=== PATIENT | female | born 1940 | race Two or more races ===

== ENCOUNTER 2017-09-08 09:26 | Inpatient (IN) | payer MEDICARE, MEDICAID ==
[~2017-09-08] VITALS: Ht 154.9 cm; Wt 81.6 kg
[2017-09-08] VITALS (7 sets, daily range): BP systolic 153–176; BP diastolic 64–103
--- NOTE | 2017-09-08 09:56 | Emergency Room Report ---
History of Present Illness General Chief Complaint: Generalized Weakness Source: Patient, EMS Present Illness HPI 77-year-old female history of diabetes and hypertension, presenting with generalized weakness, dizziness, nausea and vomiting for one day. States that she vomited twice. No diarrhea. Is passing gas. Last bowel movement was last night. Feels generally weak. Denying any fever chills or chest pain. Currently complaining of epigastric pain no other abdominal pain Allergies: Coded Allergies: No Known Allergies (Unverified , 09/08/17) Patient History Past Medical History: see triage record Past Surgical History: none Pertinent Family History: none Reviewed Nursing Documentation: PMH: Agreed, PSxH: Agreed Nursing Documentation-PMH Hx Hypertension: Yes Hx Diabetes: Yes Review of Systems All Other Systems: negative except mentioned in HPI Physical Exam Vital Signs Date Time Temp Pulse Resp B/P (MAP) Pulse Ox O2 Delivery O2 Flow Rate FiO2 09/08/17 09:18 97.5 53 18 183/67 97 Room Air Sp02 EP Interpretation: reviewed, normal General Appearance: alert, GCS 15, non-toxic, moderate distress Head: normocephalic, atraumatic Eyes: bilateral eye normal inspection, bilateral eye PERRL, bilateral eye EOMI ENT: normal ENT inspection, normal pharynx, normal voice, moist mucus membranes Neck: normal inspection, full range of motion, supple Respiratory: normal inspection, lungs clear, normal breath sounds, no respiratory distress, no retraction, no wheezing, speaking full sentences, chest symmetrical Cardiovascular #1: tachycardia, irregularly irregular Cardiovascular #2: 2+ radial (R), 2+ radial (L) Gastrointestinal: other - epigastric tenderness nontender elsewhere Musculoskeletal: normal inspection, back normal, normal range of motion, non- tender Neurologic: normal inspection, alert, oriented x3, responsive, motor strength/ tone normal, sensory intact, normal gait, speech normal Psychiatric: normal inspection, judgement/insight normal, memory normal Skin: normal inspection, normal color, no rash, warm/dry, well hydrated, normal turgor Procedures Critical Care Time Critical Care Time 40 minutes of CC time 77-year-old female, generalized weakness, found to be in atrial fibrillation with RVR VS: Tachycardic Airway patent. Not hypoxic. PLAN: IV access, labs, lactate, troponin, Blood/Urine Cx, Abx, IVF, CT of the pelvis Anticipate admission to Tele vs. [facility] CC time also includes review of labs, review of EMR, discussion with family and paperwork from SNF, d/w hospitalist CC could include dosing of pressors, additional Abx CC time does not include procedures Medical Decision Making Diagnostic Impression: Primary Impression: Episode of generalized weakness Additional Impressions: Abdominal pain Atrial fibrillation ER Course 77-year-old female with generalized weakness, nausea vomiting DDX: Dehydration, electrolyte disturbance, infection, UTI/pneumonia Gastritis, cholecystitis, mesenteric ischemia, appendicitis, diverticulitis Also found to be in atrial fibrillation with RVR, cardiac/ACS Plan: Obtain labs, ua, EKG, CXR CT abdomen pelvis ER course: Patient initially in atrial fibrillation with RVR, heart rate in 140s, paroxysmal, now at 100 now NSR at [address] abdo pelvis neg for acute process will admit Disposition: Patient is to be admitted to telemetry D/W hospitalist Dr Moore Please note that this Emergency Department Report was dictated using [employer] technician technology software, occasionally this can lead to erroneous entry secondary to interpretation by the dictation equipment. EKG Diagnostic Results #1 EP Interpretation: Yes Rate: shin Rhythm: NSR ST Segments: No acute changes ASA given to patient: No EKG Diagnostic Results #2 EP Interpretation: Yes Rate: tachy Rhythm: afib ST Segments: diffuse ST depressions ASA given to patient: Yes Rhythm Strip EP Interpretation: Yes Rate: 100 Rhythm: NSR, no PVCs, no ectopy Chest X-ray CXR: Ordered: Yes 1 view Indication: pain EP interpretation: Yes Interpretation: No consolidation, no effusion, no PTX, no acute cardiopulmonary disease Impression: No acute disease Electronically signed by Brina Krishnan MD Laboratory Tests Test 09/08/17 09:45 White Blood Count 8.4 K/UL (4.8-10.8) Red Blood Count 5.08 M/UL (4.20-5.40) Hemoglobin 14.8 G/DL (12.0-16.0) Hematocrit 45.1 % (37.0-47.0) Mean Corpuscular Volume 89 FL (80-99) Mean Corpuscular Hemoglobin 29.2 PG (27.0-31.0) Mean Corpuscular Hemoglobin Concent 32.8 G/DL (32.0-36.0) Red Cell Distribution Width 12.2 % (11.6-14.8) Platelet Count 226 K/UL (150-450) Mean Platelet Volume 8.8 FL (6.5-10.1) Neutrophils (%) (Auto) 62.1 % (45.0-75.0) Lymphocytes (%) (Auto) 26.4 % (20.0-45.0) Monocytes (%) (Auto) 5.8 % (1.0-10.0) Eosinophils (%) (Auto) 4.8 % (0.0-3.0) H Basophils (%) (Auto) 0.9 % (0.0-2.0) Sodium Level 139 MMOL/L (136-145) Potassium Level 3.1 MMOL/L (3.5-5.1) L Chloride Level 100 MMOL/L (98-107) Carbon Dioxide Level 27 MMOL/L (21-32) Anion Gap 12 mmol/L (5-15) Blood Urea Nitrogen 14 mg/dL (7-18) Creatinine 0.9 MG/DL (0.55-1.30) Estimate Glomerular Filtration Rate mL/min (>60) Glucose Level 350 MG/DL (74-106) H Lactic Acid Level 2.60 mmol/L (0.66-2.22) H Calcium Level 9.6 MG/DL (8.5-10.1) Total Bilirubin 0.5 MG/DL (0.2-1.0) Aspartate Amino Transferase (AST) 20 U/L (15-37) Alanine Aminotransferase (ALT) 25 U/L (12-78) Alkaline Phosphatase 96 U/L (46-116) Troponin I 0.003 ng/mL (0.000-0.056) Pro-B-Type Natriuretic Peptide 556 pg/mL (0-125) H Total Protein 8.2 G/DL (6.4-8.2) Albumin 3.7 G/DL (3.4-5.0) Globulin 4.5 g/dL Albumin/Globulin Ratio 0.8 (1.0-2.7) L CT/MRI/US Diagnostic Results CT/MRI/US Diagnostic Results : Imaging Test Ordered: ct ABDO PELVIS Impression Findings: Lung bases are clear. There is partial visualization of a tiny less than 1 cm nodular focus in the right breast with lucent center seen on image 2 of series 3. Correlate with mammogram and ultrasound if needed. Biliary ducts appear mildly prominent within the liver. Gallbladder is absent. Spleen is normal size. Kidneys enhance normally. Pancreas is unremarkable. Small hiatal hernia is present. Urinary bladder is unremarkable. Atrophic uterus noted normal appendix noted Marked spondylosis IMPRESSION: Some biliary ductal prominence noted. Given age and prior cholecystectomy this may be normal. Please correlate clinically. Spondylosis Mild atherosclerotic disease Small nodular focus within the right breast, incompletely assessed. Suggest correlation with mammogram and ultrasound. Last Vital Signs Date Time Temp Pulse Resp B/P (MAP) Pulse Ox O2 Delivery O2 Flow Rate FiO2 09/08/17 09:18 97.5 53 18 183/67 97 Room Air Disposition: ADMITTED INPATIENT Condition: Serious ChayaoBrina M.D. Sep 08, 2017 09:56
[2017-09-08 10:14] LABS: BASOPHILS % (AUTO) 0.9 % (0.0-2.0); EOSINOPHILS % (AUTO) 4.8 % (0.0-3.0); HEMATOCRIT 45.1 % (37.0-47.0); HEMOGLOBIN 14.8 G/DL (12.0-16.0); LYMPHOCYTES % (AUTO) 26.4 % (20.0-45.0); MEAN CORPUSCULAR VOLUME 89 FL (80-99); MONOCYTES % (AUTO) 5.8 % (1.0-10.0); NEUTROPHILS % (AUTO) 62.1 % (45.0-75.0); PLATELET COUNT 226 K/UL (150-450); RED BLOOD COUNT 5.08 M/UL (4.20-5.40); RED CELL DISTRIBUTION WIDTH 12.2 % (11.6-14.8); WHITE BLOOD COUNT 8.4 K/UL (4.8-10.8)
[2017-09-08] MEDS: Sodium Chloride 500ML 550 ML IV SCH ×6 (10:14→23:34)
[2017-09-08 10:37] LABS: ANION GAP 12 mmol/L (5-15); BLOOD UREA NITROGEN 14 mg/dL (7-18); CALCIUM 9.6 MG/DL (8.5-10.1); CARBON DIOXIDE 27 MMOL/L (21-32); CHLORIDE 100 MMOL/L (98-107); CREATININE 0.9 MG/DL (0.55-1.30); POTASSIUM 3.1 MMOL/L (3.5-5.1); SODIUM 139 MMOL/L (136-145)
[2017-09-08] MEDS ORDERED: METOPROLOL TART25 MG ORAL (10:39)
[2017-09-08] MEDS ORDERED: METFORMIN HCL500 M1 ORAL (10:39)
[2017-09-08 10:48] LABS: ALANINE AMINOTRANSFERASE 25 U/L (12-78); ALBUMIN 3.7 G/DL (3.4-5.0); ALBUMIN/GLOBULIN RATIO 0.8 (1.0-2.7); ALKALINE PHOSPHATASE 96 U/L (46-116); ASPARTATE AMINO TRANSFERASE 20 U/L (15-37); BILIRUBIN,TOTAL 0.5 MG/DL (0.2-1.0)
--- NOTE | 2017-09-08 12:18 | Diagnostic Imaging Report ---
Indication: Dyspnea Comparison: 09/08/2008 A single view chest radiograph was obtained. Findings: No definite infiltrate or pulmonary vascular congestion identified. The heart is enlarged. The aorta is mildly enlarged consistent with atherosclerotic vascular disease. The bones are osteopenic. Impression: No acute disease
--- NOTE | 2017-09-08 13:46 | Diagnostic Imaging Report ---
Indication: Abdominal pain Technique: Continuous helical transaxial imaging of the abdomen and pelvis was obtained from the lung bases to the pubic symphysis during intravenous contrast administration. Coronal 2-D reformats were also obtained. Study obtained in a Siemens sensation [address] Automatic Exposure Control was utilized. Total Dose length Product (DLP): 942.[address] Dose Index Volume (CTDIvol): 17.93 mGy Comparison: None Findings: Lung bases are clear. There is partial visualization of a tiny less than 1 cm nodular focus in the right breast with lucent center seen on image 2 of series 3. Correlate with mammogram and ultrasound if needed. Biliary ducts appear mildly prominent within the liver. Gallbladder is absent. Spleen is normal size. Kidneys enhance normally. Pancreas is unremarkable. Small hiatal hernia is present. Urinary bladder is unremarkable. Atrophic uterus noted normal appendix noted Marked spondylosis IMPRESSION: Some biliary ductal prominence noted. Given age and prior cholecystectomy this may be normal. Please correlate clinically. Spondylosis Mild atherosclerotic disease Small nodular focus within the right breast, incompletely assessed. Suggest correlation with mammogram and ultrasound. The CT scanner at [facility] is accredited by the [employer] and the scans are performed using dose optimization techniques as appropriate to a performed exam including Automatic Exposure control.
[2017-09-08 14:44] LABS: APPEARANCE,URINE CLEAR; BILIRUBIN, URINE NEGATIVE (NEGATIVE); COLOR,URINE PALE YELLOW; GLUCOSE, URINE (UA) 4+ (NEGATIVE); KETONES,URINE 2+ (NEGATIVE); LEUKOCYTE ESTERASE ,URINE NEGATIVE (NEGATIVE); NITRITE,URINE NEGATIVE (NEGATIVE); PH,URINE 8 (4.5-8.0); PROTEIN,URINE 2+ (NEGATIVE); UROBILINOGEN,URINE NORMAL MG/DL (0.0-1.0)
[2017-09-08] MEDS ORDERED: Potassium Chloride 10 MEQ in NS 110 ML IVPB SCH (15:45)
--- NOTE | 2017-09-08 17:28 | Cardiac Electrophysiology PN ---
Subjective Subjective Dictated. Atrial fib with RVR 140s and sinus bradycardia. DW ER [id number] Objective Last 24 Hour Vital Signs Date Time Temp Pulse Resp B/P (MAP) Pulse Ox O2 Delivery O2 Flow Rate FiO2 09/08/17 16:00 57 16 176/64 95 Room Air 09/08/17 15:38 97.5 69 20 168/80 97 Room Air 09/08/17 14:00 69 20 168/80 97 Room Air 09/08/17 12:00 63 20 175/76 95 Room Air 09/08/17 11:30 57 18 160/89 95 Room Air 09/08/17 10:00 132 20 167/103 95 Room Air 09/08/17 09:18 97.5 53 18 183/67 97 Room Air Laboratory Tests Test 09/08/17 09:45 09/08/17 12:45 09/08/17 14:15 White Blood Count 8.4 K/UL (4.8-10.8) Red Blood Count 5.08 M/UL (4.20-5.40) Hemoglobin 14.8 G/DL (12.0-16.0) Hematocrit 45.1 % (37.0-47.0) Mean Corpuscular Volume 89 FL (80-99) Mean Corpuscular Hemoglobin 29.2 PG (27.0-31.0) Mean Corpuscular Hemoglobin Concent 32.8 G/DL (32.0-36.0) Red Cell Distribution Width 12.2 % (11.6-14.8) Platelet Count 226 K/UL (150-450) Mean Platelet Volume 8.8 FL (6.5-10.1) Neutrophils (%) (Auto) 62.1 % (45.0-75.0) Lymphocytes (%) (Auto) 26.4 % (20.0-45.0) Monocytes (%) (Auto) 5.8 % (1.0-10.0) Eosinophils (%) (Auto) 4.8 % (0.0-3.0) H Basophils (%) (Auto) 0.9 % (0.0-2.0) Sodium Level 139 MMOL/L (136-145) Potassium Level 3.1 MMOL/L (3.5-5.1) L Chloride Level 100 MMOL/L (98-107) Carbon Dioxide Level 27 MMOL/L (21-32) Anion Gap 12 mmol/L (5-15) Blood Urea Nitrogen 14 mg/dL (7-18) Creatinine 0.9 MG/DL (0.55-1.30) Estimat Glomerular Filtration Rate mL/min (>60) Glucose Level 350 MG/DL (74-106) H Lactic Acid Level 2.60 mmol/L (0.66-2.22) H 2.60 mmol/L (0.66-2.22) H Calcium Level 9.6 MG/DL (8.5-10.1) Total Bilirubin 0.5 MG/DL (0.2-1.0) Aspartate Amino Transf (AST/SGOT) 20 U/L (15-37) Alanine Aminotransferase (ALT/SGPT) 25 U/L (12-78) Alkaline Phosphatase 96 U/L (46-116) Troponin I 0.003 ng/mL (0.000-0.056) Pro-B-Type Natriuretic Peptide 556 pg/mL (0-125) H Total Protein 8.2 G/DL (6.4-8.2) Albumin 3.7 G/DL (3.4-5.0) Globulin 4.5 g/dL Albumin/Globulin Ratio 0.8 (1.0-2.7) L Urine Color Pale yellow Urine Appearance Clear Urine pH 8 (4.5-8.0) Urine Specific [place] 1.015 (1.005-1.035) Urine Protein 2+ (NEGATIVE) H Urine Glucose (UA) 4+ (NEGATIVE) H Urine Ketones 2+ (NEGATIVE) H Urine Occult Blood 2+ (NEGATIVE) H Urine Nitrite Negative (NEGATIVE) Urine Bilirubin Negative (NEGATIVE) Urine Urobilinogen Normal MG/DL (0.0-1.0) Urine Leukocyte Esterase Negative (NEGATIVE) Urine RBC 5-10 /HPF (0 - 2) H Urine WBC 0-2 /HPF (0 - 2) Urine Squamous Epithelial Cells Few /LPF (NONE/OCC) Urine Bacteria Few /HPF (NONE) EUGENIO WOODARD Sep 08, 2017 17:27
[2017-09-08] MEDS ORDERED: Metoprolol 25mg tab ORAL SCH (21:00)
[2017-09-08] MEDS: NovoLOG Insulin Flexpen SUBQ SCH (21:00)
--- NOTE | 2017-09-08 23:15 | Consultation ---
DATE OF CONSULTATION: 09/08/2017 CARDIOLOGY CONSULTATION CONSULTING PHYSICIAN: Arvin Bryson M.D. ATTENDING/REFERRING PHYSICIAN: Cesilia Merritt M.D. REASON FOR CONSULTATION: Atrial fibrillation with rapid ventricular response. HISTORY OF PRESENT ILLNESS: The patient is a 77-year-old lady with history of hypertension and diabetes, who was brought to the emergency room with generalized weakness, dizziness, nausea, and vomiting of one day duration. The patient in the emergency room was initially in sinus rhythm; however, developed atrial fibrillation with rapid ventricular response that was caught on a 12-lead EKG with heart rate of 140 beats per minute. Initial blood pressure was also 182/67. The patient subsequently converted on her own to sinus rhythm. The patient has not been admitted to the telemetry and a Cardiology consultation was requested for further evaluation and management. PAST MEDICAL HISTORY: 1. Hypertension. 2. Diabetes. FAMILY HISTORY: Noncontributory. SOCIAL HISTORY: She lives at home. Does not smoke or drink alcohol. REVIEW OF SYSTEMS: Negative other than what is mentioned in the history of present illness. PHYSICAL EXAMINATION: VITAL SIGNS: Blood pressure is 176/64, pulse 67, respirations 18, and she is afebrile. HEAD AND NECK: Showed no JVD. LUNGS: Clear. CARDIOVASCULAR: Shows regular S1 and S2 with no gallop or murmur. ABDOMEN: Soft. EXTREMITIES: No pitting edema. LABORATORY AND DIAGNOSTIC DATA: Initial EKG showed sinus bradycardia at a rate of 57. The second EKG showed atrial fibrillation with rapid ventricular response that were in 140s. Third EKG showed sinus bradycardia rate at 57. Labs show a white count of 8.4, hemoglobin 14.8, hematocrit 45.1, and platelet count 226. Sodium is 139, potassium 3.1, BUN of 14, creatinine 0.9, and glucose of 350. Troponin was negative. BNP is 556. ASSESSMENT AND PLAN: 1. Atrial fibrillation with rapid ventricular response. The patient is self converted to sinus rhythm. This could be the cause of the patient's weakness and fatigue and tachycardia. We will watch the patient on telemetry. We will completely rule out myocardial infarction protocol. We will get an echocardiogram to evaluate for ejection fraction and wall motion abnormality. Start the patient on low-dose beta-sandra. Continue to watch the patient on telemetry. Thyroid function tests will also be ordered. 2. Hypertension. Again, start low-dose beta-sandra and that would help with atrial fibrillation with ventricular response as well. 3. Hypokalemia. Potassium was replaced. Thank0 you very much for allowing me to participate in the care of this patient. Please do not hesitate to contact me for any questions regarding my evaluation. Arvin Bryson M.D. DR: MELINDA JOB#: [id number] CC:
[2017-09-09 00:16] VITALS: BP 142/63
[2017-09-09] MEDS: Sodium Chloride 500ML 550 ML IV SCH ×2 (00:45→06:30)
[2017-09-09 04:09] VITALS: BP 150/69
[2017-09-09] MEDS: NovoLOG Insulin Flexpen SUBQ SCH ×4 (06:51→21:27)
[2017-09-09 08:00] VITALS: BP 156/76
--- NOTE | 2017-09-09 08:18 | General Progress Note ---
Assessment/Plan Problem List: (1) Diabetes mellitus out of control ICD Codes: E11.65 - Type 2 diabetes mellitus with hyperglycemia SNOMED: 97711424, 538703634 (2) Lactic acid acidosis ICD Codes: E87.2 - Acidosis SNOMED: 83061784 (3) Atrial fibrillation ICD Codes: I48.91 - Unspecified atrial fibrillation SNOMED: 80161244 (4) Episode of generalized weakness ICD Codes: R53.1 - Weakness SNOMED: 55566996 (5) Abdominal pain ICD Codes: R10.9 - Unspecified abdominal pain SNOMED: 48396045 Assessment/Plan hold Metformin due to lactic acidosis check A1c start Levemir 10 units daily + Starlix 120 mg ac tid + NISS Subjective Allergies: Coded Allergies: No Known Allergies (Unverified , 09/08/17) All Systems: reviewed and negative except above Subjective hx of DM and HTN admitted with afib w/ RVR lactic acid level is elevated Objective Last 24 Hour Vital Signs Date Time Temp Pulse Resp B/P (MAP) Pulse Ox O2 Delivery O2 Flow Rate FiO2 09/09/17 04:09 96.9 54 18 150/69 94 Room Air 09/09/17 04:00 49 09/09/17 00:16 97.4 58 19 142/63 95 Room Air 09/09/17 00:00 96 09/09/17 00:00 63 09/08/17 21:00 59 153/68 09/08/17 20:13 98.2 59 18 153/68 98 Room Air 09/08/17 20:00 56 09/08/17 17:30 97.5 60 18 159/82 95 Room Air 09/08/17 16:00 57 16 176/64 95 Room Air 09/08/17 15:38 97.5 69 20 168/80 97 Room Air 09/08/17 14:00 69 20 168/80 97 Room Air 09/08/17 12:00 63 20 175/76 95 Room Air 09/08/17 11:30 57 18 160/89 95 Room Air 09/08/17 10:00 132 20 167/103 95 Room Air 09/08/17 09:18 97.5 53 18 183/67 97 Room Air Intake and Output 09/08/17 09/09/17 19:00 07:00 Intake Total 600 ml Output Total 300 ml Balance 600 ml -300 ml Intake IV Total 600 ml Output Urine Total 300 ml # Voids 3 Laboratory Tests 09/08/17 09:45: White Blood Count 8.4, Red Blood Count 5.08, Hemoglobin 14.8, Hematocrit 45.1, Mean Corpuscular Volume 89, Mean Corpuscular Hemoglobin 29.2, Mean Corpuscular Hemoglobin Concent 32.8, Red Cell Distribution Width 12.2, Platelet Count 226, Mean Platelet Volume 8.8, Neutrophils (%) (Auto) 62.1, Lymphocytes (%) (Auto) 26.4, Monocytes (%) (Auto) 5.8, Eosinophils (%) (Auto) 4.8H, Basophils (%) (Auto ) 0.9, Sodium Level 139, Potassium Level 3.1L, Chloride Level 100, Carbon Dioxide Level 27, Anion Gap 12, Blood Urea Nitrogen 14, Creatinine 0.9, Estimat Glomerular Filtration Rate , Glucose Level 350H, Lactic Acid Level 2.60H, Calcium Level 9.6, Total Bilirubin 0.5, Aspartate Amino Transf (AST/SGOT) 20, Alanine Aminotransferase (ALT/SGPT) 25, Alkaline Phosphatase 96, Troponin I 0.003, Pro-B-Type Natriuretic Peptide 556H, Total Protein 8.2, Albumin 3.7, Globulin 4.5, Albumin/Globulin Ratio 0.8L 09/08/17 12:45: Lactic Acid Level 2.60H 09/08/17 14:15: Urine Color Pale yellow, Urine Appearance Clear, Urine pH 8, Urine Specific [place] 1.015, Urine Protein 2+H, Urine Glucose (UA) 4+H, Urine Ketones 2+H, Urine Occult Blood 2+H, Urine Nitrite Negative, Urine Bilirubin Negative, Urine Urobilinogen Normal, Urine Leukocyte Esterase Negative, Urine RBC 5-10H, Urine WBC 0-2, Urine Squamous Epithelial Cells Few, Urine Bacteria Few 09/09/17 07:20: White Blood Count [Pending], Red Blood Count [Pending], Hemoglobin [Pending], Hematocrit [Pending], Mean Corpuscular Volume [Pending], Mean Corpuscular Hemoglobin [Pending], Mean Corpuscular Hemoglobin Concent [Pending], Red Cell Distribution Width [Pending], Platelet Count [Pending], Mean Platelet Volume [ Pending], Neutrophils (%) (Auto) [Pending], Lymphocytes (%) (Auto) [Pending], Monocytes (%) (Auto) [Pending], Eosinophils (%) (Auto) [Pending], Basophils (%) (Auto) [Pending], Sodium Level [Pending], Potassium Level [Pending], Chloride Level [Pending], Carbon Dioxide Level [Pending], Blood Urea Nitrogen [Pending], Creatinine [Pending], Estimat Glomerular Filtration Rate [Pending], Glucose Level [Pending], Calcium Level [Pending], Troponin I [Pending], Pro-B-Type Natriuretic Peptide [Pending], Thyroid Stimulating Hormone (TSH) [Pending], Free Thyroxine [Pending] Height (Feet): 5 Height (Inches): 1.00 Weight (Pounds): 180 General Appearance: no apparent distress EENT: pale conjunctivae Neck: normal alignment Cardiovascular: normal rate Respiratory/Chest: lungs clear Abdomen: normal bowel sounds Pelvis: normal external exam Objective Current Medications Medications (Trade) Dose Ordered Sig/Terri Route PRN Reason Start Time Stop Time Status Last Admin Dose Admin Dextrose (Dextrose 50%) STAT PRN IV Hypoglycemia 09/08/17 20:30 10/08/17 20:29 Insulin Aspart (NovoLOG) BEFORE MEALS AND HS SUBQ 09/08/17 21:00 10/08/17 20:59 09/09/17 06:51 Metoprolol Tartrate (Lopressor) 25 mg Q12HR ORAL 09/08/17 21:00 10/08/17 20:59 09/08/17 21:00 Ondansetron HCl (Zofran) 4 mg Q6H PRN IVP Nausea & Vomiting 09/09/17 08:15 10/09/17 08:14 Sodium Chloride 550 ml @ 125 mls/hr Q4H24M IV 09/08/17 10:15 10/08/17 10:14 09/09/17 06:30 Sodium Chloride 550 ml @ 200 mls/hr Q2H45M IV 09/08/17 11:00 10/08/17 10:59 09/08/17 23:00 Item Value Date Time Bedside Blood Glucose 246 mg/dl H 09/09/17 0651 Bedside Blood Glucose 242 mg/dl H 09/08/17 2100 Bedside Blood Glucose 336 mg/dl H 09/08/17 0930 MICHAEL DAVIDSON Sep 09, 2017 08:18
[2017-09-09 08:27] LABS: BASOPHILS % (AUTO) 0.8 % (0.0-2.0); EOSINOPHILS % (AUTO) 2.2 % (0.0-3.0); HEMATOCRIT 38.7 % (37.0-47.0); HEMOGLOBIN 12.8 G/DL (12.0-16.0); LYMPHOCYTES % (AUTO) 21.9 % (20.0-45.0); MEAN CORPUSCULAR VOLUME 89 FL (80-99); MONOCYTES % (AUTO) 7.1 % (1.0-10.0); PLATELET COUNT 207 K/UL (150-450); RED BLOOD COUNT 4.32 M/UL (4.20-5.40); RED CELL DISTRIBUTION WIDTH 12.4 % (11.6-14.8); WHITE BLOOD COUNT 8.5 K/UL (4.8-10.8)
[2017-09-09 10:02] LABS: ANION GAP 11 mmol/L (5-15); BLOOD UREA NITROGEN 16 mg/dL (7-18); CALCIUM 8.9 MG/DL (8.5-10.1); CARBON DIOXIDE 25 MMOL/L (21-32); CHLORIDE 104 MMOL/L (98-107); CREATININE 0.7 MG/DL (0.55-1.30); POTASSIUM 3.3 MMOL/L (3.5-5.1); SODIUM 140 MMOL/L (136-145)
--- NOTE | 2017-09-09 10:04 | Cardiac Electrophysiology PN ---
Assessment/Plan Assessment/Plan 1. Atrial fibrillation with rapid ventricular response. The patient is self converted to sinus shin. This could be the cause of the patient's weakness and fatigue and tachycardia. Decrease Lopressor to 12.5 bid as was shin with HR 41 earlier. May need PPM for tachy shin syndrome with HR between 41 and 150 over 24 hour. 2. Troponin elevation. Echocardiogram pending. Add lippitor and Aspirin and lower dose Beta sandra 3. Hypertension. Lopressor 12.5 bid 4. Hypokalemia. Replaced. Subjective Subjective Remained in SR.No chest pain or SOB. Objective Last 24 Hour Vital Signs Date Time Temp Pulse Resp B/P (MAP) Pulse Ox O2 Delivery O2 Flow Rate FiO2 09/09/17 04:09 96.9 54 18 150/69 94 Room Air 09/09/17 04:00 49 09/09/17 00:16 97.4 58 19 142/63 95 Room Air 09/09/17 00:00 96 09/09/17 00:00 63 09/08/17 21:00 59 153/68 09/08/17 20:13 98.2 59 18 153/68 98 Room Air 09/08/17 20:00 56 09/08/17 17:30 97.5 60 18 159/82 95 Room Air 09/08/17 16:00 57 16 176/64 95 Room Air 09/08/17 15:38 97.5 69 20 168/80 97 Room Air 09/08/17 14:00 69 20 168/80 97 Room Air 09/08/17 12:00 63 20 175/76 95 Room Air 09/08/17 11:30 57 18 160/89 95 Room Air 09/08/17 10:00 132 20 167/103 95 Room Air Intake and Output 09/08/17 09/09/17 19:00 07:00 Intake Total 600 ml Output Total 300 ml Balance 600 ml -300 ml Intake IV Total 600 ml Output Urine Total 300 ml # Voids 3 Laboratory Tests Test 09/08/17 12:45 09/08/17 14:15 09/09/17 07:20 Lactic Acid Level 2.60 mmol/L (0.66-2.22) H Urine Color Pale yellow Urine Appearance Clear Urine pH 8 (4.5-8.0) Urine Specific [place] 1.015 (1.005-1.035) Urine Protein 2+ (NEGATIVE) H Urine Glucose (UA) 4+ (NEGATIVE) H Urine Ketones 2+ (NEGATIVE) H Urine Occult Blood 2+ (NEGATIVE) H Urine Nitrite Negative (NEGATIVE) Urine Bilirubin Negative (NEGATIVE) Urine Urobilinogen Normal MG/DL (0.0-1.0) Urine Leukocyte Esterase Negative (NEGATIVE) Urine RBC 5-10 /HPF (0 - 2) H Urine WBC 0-2 /HPF (0 - 2) Urine Squamous Epithelial Cells Few /LPF (NONE/OCC) Urine Bacteria Few /HPF (NONE) White Blood Count 8.5 K/UL (4.8-10.8) Red Blood Count 4.32 M/UL (4.20-5.40) Hemoglobin 12.8 G/DL (12.0-16.0) Hematocrit 38.7 % (37.0-47.0) Mean Corpuscular Volume 89 FL (80-99) Mean Corpuscular Hemoglobin 29.7 PG (27.0-31.0) Mean Corpuscular Hemoglobin Concent 33.2 G/DL (32.0-36.0) Red Cell Distribution Width 12.4 % (11.6-14.8) Platelet Count 207 K/UL (150-450) Mean Platelet Volume 8.8 FL (6.5-10.1) Neutrophils (%) (Auto) 68.0 % (45.0-75.0) Lymphocytes (%) (Auto) 21.9 % (20.0-45.0) Monocytes (%) (Auto) 7.1 % (1.0-10.0) Eosinophils (%) (Auto) 2.2 % (0.0-3.0) Basophils (%) (Auto) 0.8 % (0.0-2.0) Sodium Level Pending Potassium Level Pending Chloride Level Pending Carbon Dioxide Level Pending Blood Urea Nitrogen Pending Creatinine Pending Estimat Glomerular Filtration Rate Pending Glucose Level Pending Hemoglobin A1c Pending Calcium Level Pending Troponin I 0.336 ng/mL (0.000-0.056) Pro-B-Type Natriuretic Peptide Pending Thyroid Stimulating Hormone (TSH) Pending Free Thyroxine Pending Objective HEAD AND NECK: Showed no JVD. LUNGS: Clear. CARDIOVASCULAR: Shin S1 and S2 with no gallop or murmur. ABDOMEN: Soft. EXTREMITIES: No pitting edema. TOLUIE,EUGENIO Sep 09, 2017 10:04
--- NOTE | 2017-09-09 10:34 | GI Initial Consult Note ---
Millie Hogan N.P. 09/09/17 1033: History of Present Illness General Date patient seen: Sep 09, 2017 Time patient seen: 10:29 Reason for Hospitalization: Generalized Weakness Referring physician: PRIYA GRIGGS Reason for Consultation: N/V Present Illness HPI 77-year-old female history of diabetes and hypertension, presenting with generalized weakness, dizziness, nausea and vomiting for one day. States that she vomited twice. No diarrhea. Is passing gas. Last bowel movement was last night. Feels generally weak. Denying any fever chills or chest pain. Currently complaining of epigastric pain no other abdominal pain. GI consulted for N/V. HPI noted above. Pt seen on floor, awake A&Ox4 NAD with no active s/sx of N/V/D. Per patient, she had a few episodes of vomiting at home. Denied any hematemesis / coffee grounds. Denies ETOH, tobacco, and or drug use. Currently is asymptomatic. Labs reviewed showed elevated lactic acid levels. Unknown history of endoscopy / colonoscopy. Home Meds Reported Medications Metoprolol Tartrate* (METOPROLOL TARTRATE*) 25 Mg Tablet, ORAL, TAB 09/08/17 Metformin Hcl* (METFORMIN HCL*) 500 Mg Tablet, ORAL, TAB 09/08/17 Med list reviewed/reconciled: Yes Allergies: Coded Allergies: No Known Allergies (Unverified , 09/08/17) Patient History History Provided By: Patient, Medical Record PMH Narrative Past Medical History: see triage record Past Surgical History: none Pertinent Family History: none Reviewed Nursing Documentation: PMH: Agreed, PSxH: Agreed Nursing Documentation-PMH Hx Hypertension: Yes Hx Diabetes: Yes Social History: Denies: smoking, alcohol use, drug use, other Review of Systems All Other Systems: negative except mentioned in HPI Physical Exam Vital Signs Date Time Temp Pulse Resp B/P (MAP) Pulse Ox O2 Delivery O2 Flow Rate FiO2 09/08/17 09:18 97.5 53 18 183/67 97 Room Air Sp02 EP Interpretation: reviewed, normal Labs Laboratory Tests Test 09/08/17 12:45 09/08/17 14:15 09/09/17 07:20 Lactic Acid Level 2.60 mmol/L (0.66-2.22) H Urine Color Pale yellow Urine Appearance Clear Urine pH 8 (4.5-8.0) Urine Specific [place] 1.015 (1.005-1.035) Urine Protein 2+ (NEGATIVE) H Urine Glucose (UA) 4+ (NEGATIVE) H Urine Ketones 2+ (NEGATIVE) H Urine Occult Blood 2+ (NEGATIVE) H Urine Nitrite Negative (NEGATIVE) Urine Bilirubin Negative (NEGATIVE) Urine Urobilinogen Normal MG/DL (0.0-1.0) Urine Leukocyte Esterase Negative (NEGATIVE) Urine RBC 5-10 /HPF (0 - 2) H Urine WBC 0-2 /HPF (0 - 2) Urine Squamous Epithelial Cells Few /LPF (NONE/OCC) Urine Bacteria Few /HPF (NONE) White Blood Count 8.5 K/UL (4.8-10.8) Red Blood Count 4.32 M/UL (4.20-5.40) Hemoglobin 12.8 G/DL (12.0-16.0) Hematocrit 38.7 % (37.0-47.0) Mean Corpuscular Volume 89 FL (80-99) Mean Corpuscular Hemoglobin 29.7 PG (27.0-31.0) Mean Corpuscular Hemoglobin Concent 33.2 G/DL (32.0-36.0) Red Cell Distribution Width 12.4 % (11.6-14.8) Platelet Count 207 K/UL (150-450) Mean Platelet Volume 8.8 FL (6.5-10.1) Neutrophils (%) (Auto) 68.0 % (45.0-75.0) Lymphocytes (%) (Auto) 21.9 % (20.0-45.0) Monocytes (%) (Auto) 7.1 % (1.0-10.0) Eosinophils (%) (Auto) 2.2 % (0.0-3.0) Basophils (%) (Auto) 0.8 % (0.0-2.0) Sodium Level 140 MMOL/L (136-145) Potassium Level 3.3 MMOL/L (3.5-5.1) L Chloride Level 104 MMOL/L (98-107) Carbon Dioxide Level 25 MMOL/L (21-32) Anion Gap 11 mmol/L (5-15) Blood Urea Nitrogen 16 mg/dL (7-18) Creatinine 0.7 MG/DL (0.55-1.30) Estimat Glomerular Filtration Rate mL/min (>60) Glucose Level 244 MG/DL (74-106) #H Hemoglobin A1c Pending Calcium Level 8.9 MG/DL (8.5-10.1) Troponin I 0.336 ng/mL (0.000-0.056) Pro-B-Type Natriuretic Peptide 1182 pg/mL (0-125) H Thyroid Stimulating Hormone (TSH) 0.325 uiU/mL (0.358-3.740) Free Thyroxine 1.33 NG/DL (0.76-1.46) General Appearance: well appearing, no apparent distress, alert, obese Head: normocephalic EENT: PERRL/EOMI, normal ENT inspection Neck: supple Respiratory: normal breath sounds, no respiratory distress Cardiovascular: normal rate Gastrointestinal: normal inspection, non tender, soft, normal bowel sounds, non -distended Rectal: deferred Genitourinary: no CVA tenderness Musculoskeletal: normal inspection, back normal Neurologic: normal inspection, alert, oriented x3, responsive Psychiatric: normal inspection, judgement/insight normal, memory normal Skin: normal inspection, normal color, no rash, warm/dry, palpation normal, well hydrated Lymphatic: normal inspection, no adenopathy Current Medications Current Medications Medications (Trade) Dose Ordered Sig/Terri Route PRN Reason Start Time Stop Time Status Last Admin Dose Admin Aspirin (Ecotrin) 81 mg DAILY ORAL 09/09/17 11:00 10/09/17 10:59 Atorvastatin Calcium (Lipitor) 10 mg BEDTIME ORAL 09/09/17 21:00 10/09/17 20:59 Dextrose (Dextrose 50%) STAT PRN IV Hypoglycemia 09/08/17 20:30 10/08/17 20:29 Insulin Aspart (NovoLOG) BEFORE MEALS AND HS SUBQ 09/08/17 21:00 10/08/17 20:59 09/09/17 06:51 Insulin Detemir (Levemir) 10 units DAILY SUBQ 09/09/17 10:00 10/09/17 09:59 Metoprolol Tartrate (Lopressor) 12.5 mg Q12HR ORAL 09/09/17 11:00 10/09/17 10:59 Nateglinide (Starlix) 120 mg TIAC ORAL 09/09/17 11:30 10/09/17 11:29 Ondansetron HCl (Zofran) 4 mg Q6H PRN IVP Nausea & Vomiting 09/09/17 08:15 10/09/17 08:14 Sodium Chloride 550 ml @ 125 mls/hr Q4H24M IV 09/08/17 10:15 10/08/17 10:14 09/09/17 06:30 Sodium Chloride 550 ml @ 200 mls/hr Q2H45M IV 09/08/17 11:00 10/08/17 10:59 09/08/17 23:00 GI: Plan Problems: (1) Gastroparesis (2) Abdominal pain (3) Diabetes mellitus out of control (4) Episode of generalized weakness (5) Lactic acid acidosis Plan symptomatic treatment adv to ADA diet zofran prn, reglan for persistent vomiting ppi PO DM mgmt healthy lifestyle fu labs, lactic acid outpatient GI procedures Discussed with Dr. Love. Thank you for this patient referral, we will follow. CHARITO LOVE 09/10/17 1535: History of Present Illness General Reason for Hospitalization: Generalized Weakness Present Illness Home Meds Reported Medications Metoprolol Tartrate* (METOPROLOL TARTRATE*) 25 Mg Tablet, ORAL, TAB 09/08/17 Metformin Hcl* (METFORMIN HCL*) 500 Mg Tablet, ORAL, TAB 09/08/17 Allergies: Coded Allergies: No Known Allergies (Unverified , 09/08/17) GI: Plan Plan The patient was seen and examined at bedside and all new and available data was reviewed in the patients chart. I agree with the above findings, impression and plan. (Patient seen earlier today. Signature stamp does not reflect patient encounter time.). - MD Samira MachadoEn[facility] Geoffrey N.PJoe Sep 09, 2017 10:33 CHARITO LOVE Sep 10, 2017 15:35
[2017-09-09] MEDS: Metoprolol 25mg tab ORAL SCH ×2 (11:00→21:31)
[2017-09-09] MEDS: Aspirin EC 81mg tab ORAL SCH (11:02)
[2017-09-09] MEDS: Levemir Flexpen SUBQ SCH (11:03)
[2017-09-09] MEDS ORDERED: NovoLOG Insulin Flexpen SUBQ SCH (11:30)
[2017-09-09 12:00] VITALS: BP 164/76
--- NOTE | 2017-09-09 14:43 | Cardiology Report ---
APPROVED REPORT EXAM: Two-dimensional and M-mode echocardiogram with Doppler and color Doppler. INDICATION OTHER M-Mode DIMENSIONS IVSd1.2 (0.7-1.1cm)Left Atrium (MM)5.1 (1.6-4.0cm) LVDd5.6 (3.5-5.6cm)Aortic Root3.0 (2.0-3.7cm) PWd1.2 (0.7-1.1cm)Aortic Cusp Exc.1.9 (1.5-2.0cm) IVSs2.4 cm LVDs3.9 (2.5-4.0cm) PWs1.4 cm Normal left ventricular chamber size, systolic function and wall motion. Left ventricular ejection fraction estimated to be 55-60 %. Mild left ventricular hypertrophy by 2-D. No evidence of pericardial effusion Mild Left atrial enlargement. Right cardiac chamber sizes are within normal limits. Focal aortic valve sclerosis with adequate cusp excursion. Thickened mitral valve leaflets with normal excursion. Mitral annulus and aortic root calcification. Normal pulmonic valve structure. Normal tricuspid valve structure. IVC at normal size with physiologic collapse. A color flow and spectral Doppler study was performed and revealed: Mild aortic regurgitation. Mild mitral regurgitation. Normal left ventricular diastolic function . Trace tricuspid regurgitation. Tricuspid systolic velocities suggests peak right ventricular systolic pressure of 36 mmHg,consistent with moderate pulmonary hypertension. No Pulmonic regurgitation present.
--- NOTE | 2017-09-09 15:52 | Cardiology Report ---
APPROVED REPORT EKG Measurement Heart [id number] Normal sinus rhythm Normal ECG
[2017-09-09 16:00] VITALS: BP 172/79
[2017-09-09] MEDS ORDERED: HydrALAZINE 25mg tab ORAL PRN (16:30)
[2017-09-09] MEDS ORDERED: Lisinopril 10mg tab ORAL ONE (16:30)
--- NOTE | 2017-09-09 19:00 | History and Physical Report ---
DATE OF ADMISSION: 09/08/2017 HISTORY OF PRESENT ILLNESS: The patient is being admitted for generalized weakness and atrial fibrillation. The patient is being admitted for atrial fibrillation with rapid ventricular response that was paroxysmal. The patient also has elevated blood sugar, is diabetic, and also been admitted for low potassium. The patient also complained of multiple vomiting as well as abdominal pain and generalized weakness. CT per ER doctor was negative for any acute process. The patient was also dizzy and vomiting. PAST MEDICAL HISTORY: Significant for NIDDM, hypertension, hyperlipidemia, and breast cancer. PAST SURGICAL HISTORY: Cholecystectomy and breast cancer removal. ALLERGIES: No known allergies. MEDICATIONS: Metformin and metoprolol, does not know the dosages. FAMILY HISTORY: Does have history of diabetes and hypertension. SOCIAL HISTORY: The patient denies history of smoking, alcohol, or illicit drugs. She is . REVIEW OF SYSTEMS: HEENT: Denies headaches. Does have dizziness and vertigo. RESPIRATORY: Denies shortness of breath. Denies cough. CARDIOVASCULAR: Denies chest pain. Denies diaphoresis. Denies orthopnea. GASTROINTESTINAL: Reported vomiting multiple times and abdominal pain. No constipation. EXTREMITIES: Denies pain in lower extremities. CENTRAL NERVOUS SYSTEM: No change in vision or speech pattern, however, is feeling dizzy. No vertigo. No diplopia. PHYSICAL EXAMINATION: VITAL SIGNS: Temperature 98.2, pulse is 51, and blood pressure 153/58. HEENT: PERRLA. NECK: Supple. No lymphadenopathy. CHEST: Clear to auscultation. CARDIOVASCULAR: Irregular irregular. No murmurs. GASTROINTESTINAL: Soft. Positive bowel sounds. Mild tenderness diffusely. Abdomen is soft. There is no guarding. No acute distress. No organomegaly. There is no acute abdomen absolutely at this point. Abdomen is very soft and the pain is minimal at best with no rebound effect. EXTREMITIES: No edema. Cranial nerves II through XII intact. She is able to move all four extremities. Reflexes are equal on both sides. LABORATORY DATA: WBC of 8.4, hemoglobin of 14.8, and platelets of 226,000. Lactic acid 2.6. ASSESSMENT AND PLAN: 1. Atrial fibrillation with rapid ventricular response. 2. Abdominal pain. 3. Vomiting. 4. Low potassium. 5. I have asked Dr. Bryson, Dr. Gardner, Dr. Donald, and Dr. Lu to see the patient for the above-mentioned diagnoses and treatment. Cesilia Merritt M.D. DR: DENTON JOB#: [id number] CC:
[2017-09-09 20:00] VITALS: BP 163/75
[2017-09-10] VITALS: BP 162/75
[2017-09-10 03:27] LABS: EOSINOPHILS % (AUTO) 3.3 % (0.0-3.0); HEMATOCRIT 38.2 % (37.0-47.0); LYMPHOCYTES % (AUTO) 24.4 % (20.0-45.0); MEAN CORPUSCULAR VOLUME 89 FL (80-99); MONOCYTES % (AUTO) 6.9 % (1.0-10.0); NEUTROPHILS % (AUTO) 64.5 % (45.0-75.0); PLATELET COUNT 206 K/UL (150-450); RED BLOOD COUNT 4.29 M/UL (4.20-5.40); RED CELL DISTRIBUTION WIDTH 12.6 % (11.6-14.8); WHITE BLOOD COUNT 8.1 K/UL (4.8-10.8)
[2017-09-10 03:35] LABS: ANION GAP 8 mmol/L (5-15); BLOOD UREA NITROGEN 16 mg/dL (7-18); CALCIUM 8.9 MG/DL (8.5-10.1); CARBON DIOXIDE 26 MMOL/L (21-32); CHLORIDE 107 MMOL/L (98-107); CREATININE 0.7 MG/DL (0.55-1.30); SODIUM 141 MMOL/L (136-145)
[2017-09-10 04:00] VITALS: BP 152/66
[2017-09-10] MEDS: NovoLOG Insulin Flexpen SUBQ SCH ×4 (06:54→21:01)
--- NOTE | 2017-09-10 07:10 | General Progress Note ---
Assessment/Plan Problem List: (1) Diabetes mellitus out of control ICD Codes: E11.65 - Type 2 diabetes mellitus with hyperglycemia SNOMED: 80747157, 999490134 (2) Lactic acid acidosis ICD Codes: E87.2 - Acidosis SNOMED: 84240301 (3) Atrial fibrillation ICD Codes: I48.91 - Unspecified atrial fibrillation SNOMED: 11663001 (4) Episode of generalized weakness ICD Codes: R53.1 - Weakness SNOMED: 40705274 (5) Abdominal pain ICD Codes: R10.9 - Unspecified abdominal pain SNOMED: 05371497 Assessment/Plan hold Metformin due to lactic acidosis A1c elevated and confirms uncontrolled DM increase Levemir 10 to 14 units daily continue Starlix 120 mg ac tid + NISS Subjective Allergies: Coded Allergies: No Known Allergies (Unverified , 09/08/17) All Systems: reviewed and negative except above Subjective events noted Objective Last 24 Hour Vital Signs Date Time Temp Pulse Resp B/P (MAP) Pulse Ox O2 Delivery O2 Flow Rate FiO2 09/10/17 04:00 97.3 60 18 152/66 94 Room Air 60 09/10/17 03:42 52 09/10/17 00:00 98.1 59 20 162/75 97 Room Air 09/09/17 23:49 54 09/09/17 21:31 66 164/74 09/09/17 20:00 98.2 61 20 163/75 93 Room Air 09/09/17 20:00 60 09/09/17 17:00 172/79 09/09/17 16:00 69 09/09/17 16:00 97.5 62 21 172/79 94 Room Air 09/09/17 12:00 97.5 55 19 164/76 95 Room Air 09/09/17 12:00 49 09/09/17 08:00 97.8 52 20 156/76 95 Room Air 09/09/17 08:00 55 Intake and Output 09/09/17 09/10/17 19:00 07:00 Intake Total 260 ml 200 ml Balance 260 ml 200 ml Intake Oral 260 ml 200 ml # Voids 4 Laboratory Tests 09/09/17 07:20: White Blood Count 8.5, Red Blood Count 4.32, Hemoglobin 12.8, Hematocrit 38.7, Mean Corpuscular Volume 89, Mean Corpuscular Hemoglobin 29.7, Mean Corpuscular Hemoglobin Concent 33.2, Red Cell Distribution Width 12.4, Platelet Count 207, Mean Platelet Volume 8.8, Neutrophils (%) (Auto) 68.0, Lymphocytes (%) (Auto) 21.9, Monocytes (%) (Auto) 7.1, Eosinophils (%) (Auto) 2.2, Basophils (%) (Auto ) 0.8, Sodium Level 140, Potassium Level 3.3L, Chloride Level 104, Carbon Dioxide Level 25, Anion Gap 11, Blood Urea Nitrogen 16, Creatinine 0.7, Estimat Glomerular Filtration Rate , Glucose Level 244#H, Hemoglobin A1c 9.8H, Calcium Level 8.9, Troponin I 0.336H, Pro-B-Type Natriuretic Peptide 1182H, Thyroid Stimulating Hormone (TSH) 0.325L, Free Thyroxine 1.33 09/09/17 11:00: Troponin I 0.274H 09/09/17 19:15: Troponin I 0.285H 09/10/17 02:50: White Blood Count 8.1, Red Blood Count 4.29, Hemoglobin 13.0, Hematocrit 38.2, Mean Corpuscular Volume 89, Mean Corpuscular Hemoglobin 30.2, Mean Corpuscular Hemoglobin Concent 33.9, Red Cell Distribution Width 12.6, Platelet Count 206, Mean Platelet Volume 9.0, Neutrophils (%) (Auto) 64.5, Lymphocytes (%) (Auto) 24.4, Monocytes (%) (Auto) 6.9, Eosinophils (%) (Auto) 3.3H, Basophils (%) (Auto ) 1.0, Sodium Level 141, Potassium Level 4.0, Chloride Level 107, Carbon Dioxide Level 26, Anion Gap 8, Blood Urea Nitrogen 16, Creatinine 0.7, Estimat Glomerular Filtration Rate , Glucose Level 213H, Calcium Level 8.9, Troponin I 0.241H, Lactic Acid Level 0.90 Height (Feet): 5 Height (Inches): 1.00 Weight (Pounds): 180 General Appearance: no apparent distress Neck: normal alignment Cardiovascular: normal rate Respiratory/Chest: lungs clear Abdomen: normal bowel sounds Objective Current Medications Medications (Trade) Dose Ordered Sig/Terri Route PRN Reason Start Time Stop Time Status Last Admin Dose Admin Amlodipine Besylate (Norvasc) 10 mg DAILY ORAL 09/10/17 09:00 10/10/17 08:59 Aspirin (Ecotrin) 81 mg DAILY ORAL 09/09/17 11:00 10/09/17 10:59 09/09/17 11:02 Atorvastatin Calcium (Lipitor) 10 mg BEDTIME ORAL 09/09/17 21:00 10/09/17 20:59 09/09/17 21:25 Dextrose (Dextrose 50%) STAT PRN IV Hypoglycemia 09/08/17 20:30 10/08/17 20:29 Hydralazine HCl (Apresoline) 25 mg Q4H PRN ORAL SBP > 160 09/09/17 16:30 10/09/17 16:29 Insulin Aspart (NovoLOG) BEFORE MEALS AND HS SUBQ 09/08/17 21:00 10/08/17 20:59 09/10/17 06:54 Insulin Detemir (Levemir) 10 units DAILY SUBQ 09/09/17 10:00 10/09/17 09:59 09/09/17 11:03 Lisinopril (Zestril) 10 mg DAILY ORAL 09/10/17 09:00 10/10/17 08:59 Metoprolol Tartrate (Lopressor) 12.5 mg Q12HR ORAL 09/09/17 11:00 10/09/17 10:59 09/09/17 21:31 Nateglinide (Starlix) 120 mg TIAC ORAL 09/09/17 11:30 10/09/17 11:29 09/10/17 06:52 Ondansetron HCl (Zofran) 4 mg Q6H PRN IVP Nausea & Vomiting 09/09/17 08:15 10/09/17 08:14 Item Value Date Time Bedside Blood Glucose 237 mg/dl H 09/10/17 0654 Bedside Blood Glucose 164 mg/dl H 09/09/17 2127 Bedside Blood Glucose 148 mg/dl H 09/09/17 1709 Bedside Blood Glucose 251 mg/dl H 09/09/17 1359 Bedside Blood Glucose 282 mg/dl H 09/09/17 1000 Bedside Blood Glucose 246 mg/dl H 09/09/17 0651 MICHAEL DAVIDSON Sep 10, 2017 07:10
[2017-09-10 08:00] VITALS: BP 153/76
[2017-09-10] MEDS: Aspirin EC 81mg tab ORAL SCH (08:43)
[2017-09-10] MEDS: Metoprolol 25mg tab ORAL SCH ×3 (08:47→21:03)
[2017-09-10] MEDS: Levemir Flexpen SUBQ SCH (08:48)
[2017-09-10] MEDS ORDERED: Lisinopril 10mg tab ORAL SCH (09:00)
--- NOTE | 2017-09-10 10:47 | GI Progress Note ---
Assessment/Plan Problems: (1) Gastroparesis ICD Codes: K31.84 - Gastroparesis SNOMED: 890053684 (2) Episode of generalized weakness ICD Codes: R53.1 - Weakness SNOMED: 35518834 (3) Diabetes mellitus out of control ICD Codes: E11.65 - Type 2 diabetes mellitus with hyperglycemia SNOMED: 93005714, 462997155 (4) Abdominal pain ICD Codes: R10.9 - Unspecified abdominal pain SNOMED: 53281897 Status: stable, unchanged Status Narrative Discussed with Dr. Lu. Assessment/Plan symptomatic treatment adv to ADA diet zofran prn, reglan for persistent vomiting ppi PO DM mgmt healthy lifestyle fu labs, lactic acid bowel regime outpatient GI procedures Subjective Gastrointestinal/Abdominal: Reports: no symptoms Objective Last 24 Hour Vital Signs Date Time Temp Pulse Resp B/P (MAP) Pulse Ox O2 Delivery O2 Flow Rate FiO2 09/10/17 08:47 68 153/76 09/10/17 08:44 68 153/76 09/10/17 08:43 153/76 09/10/17 08:00 98.3 68 18 153/76 95 Room Air 68 09/10/17 04:00 97.3 60 18 152/66 94 Room Air 60 09/10/17 03:42 52 09/10/17 00:00 98.1 59 20 162/75 97 Room Air 09/09/17 23:49 54 09/09/17 21:31 66 164/74 09/09/17 20:00 98.2 61 20 163/75 93 Room Air 09/09/17 20:00 60 09/09/17 17:00 172/79 09/09/17 16:00 69 09/09/17 16:00 97.5 62 21 172/79 94 Room Air 09/09/17 12:00 97.5 55 19 164/76 95 Room Air 09/09/17 12:00 49 Intake and Output 09/09/17 09/10/17 19:00 07:00 Intake Total 260 ml 200 ml Balance 260 ml 200 ml Intake Oral 260 ml 200 ml # Voids 4 Laboratory Tests Test 09/09/17 11:00 09/09/17 19:15 09/10/17 02:50 Troponin I 0.274 ng/mL (0.000-0.056) 0.285 ng/mL (0.000-0.056) 0.241 ng/mL (0.000-0.056) White Blood Count 8.1 K/UL (4.8-10.8) Red Blood Count 4.29 M/UL (4.20-5.40) Hemoglobin 13.0 G/DL (12.0-16.0) Hematocrit 38.2 % (37.0-47.0) Mean Corpuscular Volume 89 FL (80-99) Mean Corpuscular Hemoglobin 30.2 PG (27.0-31.0) Mean Corpuscular Hemoglobin Concent 33.9 G/DL (32.0-36.0) Red Cell Distribution Width 12.6 % (11.6-14.8) Platelet Count 206 K/UL (150-450) Mean Platelet Volume 9.0 FL (6.5-10.1) Neutrophils (%) (Auto) 64.5 % (45.0-75.0) Lymphocytes (%) (Auto) 24.4 % (20.0-45.0) Monocytes (%) (Auto) 6.9 % (1.0-10.0) Eosinophils (%) (Auto) 3.3 % (0.0-3.0) H Basophils (%) (Auto) 1.0 % (0.0-2.0) Sodium Level 141 MMOL/L (136-145) Potassium Level 4.0 MMOL/L (3.5-5.1) Chloride Level 107 MMOL/L (98-107) Carbon Dioxide Level 26 MMOL/L (21-32) Anion Gap 8 mmol/L (5-15) Blood Urea Nitrogen 16 mg/dL (7-18) Creatinine 0.7 MG/DL (0.55-1.30) Estimat Glomerular Filtration Rate mL/min (>60) Glucose Level 213 MG/DL (74-106) H Lactic Acid Level 0.90 mmol/L (0.66-2.22) Calcium Level 8.9 MG/DL (8.5-10.1) Height (Feet): 5 Height (Inches): 1.00 Weight (Pounds): 180 General Appearance: WD/WN, no apparent distress, alert Cardiovascular: normal rate Respiratory/Chest: normal breath sounds, no respiratory distress Abdominal Exam: normal bowel sounds, non tender, soft Extremities: normal range of motion, non-tender Millie Hogan N.P. Sep 10, 2017 10:47
[2017-09-10 12:00] VITALS: BP 143/78
--- NOTE | 2017-09-10 12:39 | Cardiology Report ---
APPROVED REPORT EKG Measurement Heart [id number] [place] 152P63 [id number] Normal sinus rhythm Cannot rule out Anterior infarct, age undetermined Abnormal ECG
[2017-09-10 16:00] VITALS: BP 140/77
--- NOTE | 2017-09-10 16:08 | Consultation ---
Consult Note Consult Note asked to eval for HTN and Electrolyte management Assessment/Plan - Atrial fibrillation with rapid ventricular response. The patient is self converted to sinus shin. - Troponin elevation. Echocardiogram pending. Add lippitor and Aspirin and lower dose Beta sandra - Hypertension. now controlled - Hypokalemia. Replaced.now WNL - DM , Proteinuria: Nephropathy Plan: Per cardiology Monitor BP and Lytes Keep BS in check NAHEED GUZMAN Sep 10, 2017 16:08
--- NOTE | 2017-09-10 16:18 | Cardiac Electrophysiology PN ---
Assessment/Plan Assessment/Plan 1. Atrial fibrillation with rapid ventricular response. Converted to sinus shin. On Lopressor 12.5 bid May need PPM for tachy shin syndrome with HR between 41 and 150 over 24 hour Off anticoagulation for now as it was the only known episode 2. Troponin elevation. Levels flat and no chest pain and EF normal. Schedule for nuclear stress test in am. Echocardiogram Ef 55%.On lipitor, Aspirin and Lopressor 12.5 bid 3. Hypertension. DC Norvasc. Increase Lisinopril to 20 bid. Continue Lopressor 12.5 bid 4. Hypokalemia. Replaced. OMID RN and family Subjective Subjective In SR.No chest pain or SOB.Wants to go home. Objective Last 24 Hour Vital Signs Date Time Temp Pulse Resp B/P (MAP) Pulse Ox O2 Delivery O2 Flow Rate FiO2 09/10/17 12:00 97.9 57 18 143/78 94 Room Air 57 09/10/17 12:00 61 09/10/17 08:47 68 153/76 09/10/17 08:44 68 153/76 09/10/17 08:43 153/76 09/10/17 08:00 58 09/10/17 08:00 98.3 68 18 153/76 95 Room Air 68 09/10/17 04:00 97.3 60 18 152/66 94 Room Air 60 09/10/17 03:42 52 09/10/17 00:00 98.1 59 20 162/75 97 Room Air 09/09/17 23:49 54 09/09/17 21:31 66 164/74 09/09/17 20:00 98.2 61 20 163/75 93 Room Air 09/09/17 20:00 60 09/09/17 17:00 172/79 Intake and Output 09/09/17 09/10/17 19:00 07:00 Intake Total 260 ml 200 ml Balance 260 ml 200 ml Intake Oral 260 ml 200 ml # Voids 4 Laboratory Tests Test 09/09/17 19:15 09/10/17 02:50 Troponin I 0.285 ng/mL (0.000-0.056) 0.241 ng/mL (0.000-0.056) White Blood Count 8.1 K/UL (4.8-10.8) Red Blood Count 4.29 M/UL (4.20-5.40) Hemoglobin 13.0 G/DL (12.0-16.0) Hematocrit 38.2 % (37.0-47.0) Mean Corpuscular Volume 89 FL (80-99) Mean Corpuscular Hemoglobin 30.2 PG (27.0-31.0) Mean Corpuscular Hemoglobin Concent 33.9 G/DL (32.0-36.0) Red Cell Distribution Width 12.6 % (11.6-14.8) Platelet Count 206 K/UL (150-450) Mean Platelet Volume 9.0 FL (6.5-10.1) Neutrophils (%) (Auto) 64.5 % (45.0-75.0) Lymphocytes (%) (Auto) 24.4 % (20.0-45.0) Monocytes (%) (Auto) 6.9 % (1.0-10.0) Eosinophils (%) (Auto) 3.3 % (0.0-3.0) H Basophils (%) (Auto) 1.0 % (0.0-2.0) Sodium Level 141 MMOL/L (136-145) Potassium Level 4.0 MMOL/L (3.5-5.1) Chloride Level 107 MMOL/L (98-107) Carbon Dioxide Level 26 MMOL/L (21-32) Anion Gap 8 mmol/L (5-15) Blood Urea Nitrogen 16 mg/dL (7-18) Creatinine 0.7 MG/DL (0.55-1.30) Estimat Glomerular Filtration Rate mL/min (>60) Glucose Level 213 MG/DL (74-106) H Lactic Acid Level 0.90 mmol/L (0.66-2.22) Calcium Level 8.9 MG/DL (8.5-10.1) Microbiology Date/Time Source Procedure Growth Status 09/08/17 09:55 Blood Blood Culture - Preliminary NO GROWTH AFTER 24 HOURS Resulted 09/08/17 09:45 Blood Blood Culture - Preliminary NO GROWTH AFTER 24 HOURS Resulted Objective HEAD AND NECK: Showed no JVD. LUNGS: Clear. CARDIOVASCULAR: Shin S1 and S2 with no gallop or murmur. ABDOMEN: Soft. EXTREMITIES: No pitting edema. EUGENIO WOODARD Sep 10, 2017 16:18
[2017-09-10] MEDS: Lisinopril 20mg tab ORAL SCH (17:27)
[2017-09-10 20:00] VITALS: BP 165/97
[2017-09-10] MEDS: Miralax 17gm pkt ORAL SCH ×2 (20:56→21:00)
--- NOTE | 2017-09-10 23:13 | General Progress Note ---
Assessment/Plan Problem List: (1) Abdominal pain ICD Codes: R10.9 - Unspecified abdominal pain SNOMED: 64689258 (2) Diabetes mellitus out of control ICD Codes: E11.65 - Type 2 diabetes mellitus with hyperglycemia SNOMED: 38319604, 304503542 (3) Episode of generalized weakness ICD Codes: R53.1 - Weakness SNOMED: 66748863 (4) Atrial fibrillation ICD Codes: I48.91 - Unspecified atrial fibrillation SNOMED: 71641050 Status: progressing Assessment/Plan a fib abdominal pain reviewed chart and labs Subjective ROS Limited/Unobtainable: Yes Allergies: Coded Allergies: No Known Allergies (Unverified , 09/08/17) Objective Last 24 Hour Vital Signs Date Time Temp Pulse Resp B/P (MAP) Pulse Ox O2 Delivery O2 Flow Rate FiO2 09/10/17 21:03 74 151/80 09/10/17 20:00 99.1 80 19 165/97 99 09/10/17 17:27 140/77 09/10/17 16:00 61 09/10/17 16:00 98.1 64 18 140/77 94 Room Air 64 09/10/17 12:00 97.9 57 18 143/78 94 Room Air 57 09/10/17 12:00 61 09/10/17 08:47 68 153/76 09/10/17 08:44 68 153/76 09/10/17 08:43 153/76 09/10/17 08:00 58 09/10/17 08:00 98.3 68 18 153/76 95 Room Air 68 09/10/17 04:00 97.3 60 18 152/66 94 Room Air 60 09/10/17 03:42 52 09/10/17 00:00 98.1 59 20 162/75 97 Room Air 09/09/17 23:49 54 Intake and Output 09/09/17 09/10/17 19:00 07:00 Intake Total 260 ml 200 ml Balance 260 ml 200 ml Intake Oral 260 ml 200 ml # Voids 4 Laboratory Tests 09/10/17 02:50: White Blood Count 8.1, Red Blood Count 4.29, Hemoglobin 13.0, Hematocrit 38.2, Mean Corpuscular Volume 89, Mean Corpuscular Hemoglobin 30.2, Mean Corpuscular Hemoglobin Concent 33.9, Red Cell Distribution Width 12.6, Platelet Count 206, Mean Platelet Volume 9.0, Neutrophils (%) (Auto) 64.5, Lymphocytes (%) (Auto) 24.4, Monocytes (%) (Auto) 6.9, Eosinophils (%) (Auto) 3.3H, Basophils (%) (Auto ) 1.0, Sodium Level 141, Potassium Level 4.0, Chloride Level 107, Carbon Dioxide Level 26, Anion Gap 8, Blood Urea Nitrogen 16, Creatinine 0.7, Estimat Glomerular Filtration Rate , Glucose Level 213H, Lactic Acid Level 0.90, Calcium Level 8.9, Troponin I 0.241H, C-Reactive Protein, Quantitative 0.7 Height (Feet): 5 Height (Inches): 1.00 Weight (Pounds): 180 Cardiovascular: normal rate Cesilia Merritt MD Sep 10, 2017 23:13
[2017-09-11] VITALS: BP 144/75
[2017-09-11] MEDS ORDERED: Lexiscan 0.4mg/5ml syringe IV ONE (03:45)
[2017-09-11 04:00] VITALS: BP 148/76
[2017-09-11] MEDS ORDERED: Lexiscan 0.4mg/5ml syringe IV SCH (04:15)
[2017-09-11] MEDS ORDERED: Lexiscan 0.4mg/5ml syringe IV PRN (04:15)
[2017-09-11] MEDS: NovoLOG Insulin Flexpen SUBQ SCH ×4 (06:30→22:14)
--- NOTE | 2017-09-11 07:03 | General Progress Note ---
Assessment/Plan Problem List: (1) Diabetes mellitus out of control ICD Codes: E11.65 - Type 2 diabetes mellitus with hyperglycemia SNOMED: 18339583, 692166958 (2) Lactic acid acidosis ICD Codes: E87.2 - Acidosis SNOMED: 07049124 (3) Atrial fibrillation ICD Codes: I48.91 - Unspecified atrial fibrillation SNOMED: 02036445 (4) Episode of generalized weakness ICD Codes: R53.1 - Weakness SNOMED: 75817836 (5) Abdominal pain ICD Codes: R10.9 - Unspecified abdominal pain SNOMED: 52649874 Assessment/Plan hold Metformin due to lactic acidosis A1c elevated and confirms uncontrolled DM continue Levemir 14 units daily continue Starlix 120 mg ac tid + NISS Subjective Allergies: Coded Allergies: No Known Allergies (Unverified , 09/08/17) All Systems: reviewed and negative except above Subjective events noted Objective Last 24 Hour Vital Signs Date Time Temp Pulse Resp B/P (MAP) Pulse Ox O2 Delivery O2 Flow Rate FiO2 09/11/17 04:00 97.2 60 18 148/76 100 Room Air 09/11/17 03:57 56 09/11/17 02:46 48 09/11/17 00:00 97.0 60 19 144/75 97 09/10/17 21:03 74 151/80 09/10/17 20:00 99.1 80 19 165/97 99 09/10/17 19:16 78 09/10/17 17:27 140/77 09/10/17 16:00 61 09/10/17 16:00 98.1 64 18 140/77 94 Room Air 64 09/10/17 12:00 97.9 57 18 143/78 94 Room Air 57 09/10/17 12:00 61 09/10/17 08:47 68 153/76 09/10/17 08:44 68 153/76 09/10/17 08:43 153/76 09/10/17 08:00 58 09/10/17 08:00 98.3 68 18 153/76 95 Room Air 68 Intake and Output 09/10/17 09/11/17 19:00 07:00 Intake Total 830 ml Balance 830 ml Intake Oral 830 ml # Voids 5 Height (Feet): 5 Height (Inches): 1.00 Weight (Pounds): 180 General Appearance: no apparent distress Neck: non-tender Cardiovascular: normal rate Respiratory/Chest: lungs clear Abdomen: normal bowel sounds Objective Current Medications Medications (Trade) Dose Ordered Sig/Terri Route PRN Reason Start Time Stop Time Status Last Admin Dose Admin Aspirin (Ecotrin) 81 mg DAILY ORAL 09/09/17 11:00 10/09/17 10:59 09/10/17 08:43 Atorvastatin Calcium (Lipitor) 10 mg BEDTIME ORAL 09/09/17 21:00 10/09/17 20:59 09/10/17 20:56 Dextrose (Dextrose 50%) STAT PRN IV Hypoglycemia 09/08/17 20:30 10/08/17 20:29 Hydralazine HCl (Apresoline) 25 mg Q4H PRN ORAL SBP > 160 09/09/17 16:30 10/09/17 16:29 Insulin Aspart (NovoLOG) BEFORE MEALS AND HS SUBQ 09/08/17 21:00 10/08/17 20:59 09/11/17 06:30 Insulin Detemir (Levemir) 10 units DAILY SUBQ 09/09/17 10:00 10/09/17 09:59 09/10/17 08:48 Lisinopril (Prinivil) 20 mg Q12HR ORAL 09/10/17 18:00 10/10/17 17:59 09/10/17 17:27 Metoprolol Tartrate (Lopressor) 12.5 mg Q12HR ORAL 09/09/17 11:00 10/09/17 10:59 09/10/17 21:03 Nateglinide (Starlix) 120 mg TIAC ORAL 09/09/17 11:30 10/09/17 11:29 09/11/17 06:29 Ondansetron HCl (Zofran) 4 mg Q6H PRN IVP Nausea & Vomiting 09/09/17 08:15 10/09/17 08:14 Polyethylene Glycol (Miralax) 17 gm BEDTIME ORAL 09/10/17 21:00 10/10/17 20:59 Regadenoson (Lexiscan) 0.4 mg PRN PRN IV Per rx protocol 09/11/17 04:15 10/11/17 04:14 Item Value Date Time Bedside Blood Glucose 187 mg/dl H 09/11/17 0632 Bedside Blood Glucose 175 mg/dl H 09/10/17 2101 Bedside Blood Glucose 170 mg/dl H 09/10/17 1729 Bedside Blood Glucose 170 mg/dl H 09/10/17 1230 Bedside Blood Glucose 237 mg/dl H 09/10/17 0848 Bedside Blood Glucose 237 mg/dl H 09/10/17 0654 MICHAEL DAVIDSON Sep 11, 2017 07:03
[2017-09-11 08:00] VITALS: BP 181/73
[2017-09-11 08:05] LABS: BASOPHILS % (AUTO) 0.9 % (0.0-2.0); EOSINOPHILS % (AUTO) 3.6 % (0.0-3.0); HEMATOCRIT 38.8 % (37.0-47.0); HEMOGLOBIN 12.9 G/DL (12.0-16.0); LYMPHOCYTES % (AUTO) 21.8 % (20.0-45.0); MEAN CORPUSCULAR VOLUME 89 FL (80-99); MONOCYTES % (AUTO) 6.5 % (1.0-10.0); NEUTROPHILS % (AUTO) 67.2 % (45.0-75.0); PLATELET COUNT 214 K/UL (150-450); RED BLOOD COUNT 4.34 M/UL (4.20-5.40); WHITE BLOOD COUNT 8.2 K/UL (4.8-10.8)
[2017-09-11 08:32] LABS: ALANINE AMINOTRANSFERASE 18 U/L (12-78); ALBUMIN 2.9 G/DL (3.4-5.0); ALBUMIN/GLOBULIN RATIO 0.8 (1.0-2.7); ALKALINE PHOSPHATASE 74 U/L (46-116); ANION GAP 7 mmol/L (5-15); ASPARTATE AMINO TRANSFERASE 18 U/L (15-37); BILIRUBIN,TOTAL 0.6 MG/DL (0.2-1.0); BLOOD UREA NITROGEN 15 mg/dL (7-18); CARBON DIOXIDE 26 MMOL/L (21-32); CHLORIDE 108 MMOL/L (98-107); CHOLESTEROL 149 MG/DL (< 200); CREATINE KINASE 123 U/L (26-308); CREATININE 0.7 MG/DL (0.55-1.30); GAMMA GLUTAMYL TRANSPEPTIDASE 13 U/L (5-85); HDL CHOLESTEROL 56 MG/DL (40-60); PHOSPHORUS 3.6 MG/DL (2.5-4.9); POTASSIUM 3.7 MMOL/L (3.5-5.1); SODIUM 141 MMOL/L (136-145); TRIGLYCERIDES 121 MG/DL (30-150)
[2017-09-11] MEDS: Lisinopril 20mg tab ORAL SCH ×2 (08:52→22:13)
[2017-09-11] MEDS: Aspirin EC 81mg tab ORAL SCH (08:52)
[2017-09-11] MEDS: Metoprolol 25mg tab ORAL SCH ×2 (08:52→22:12)
[2017-09-11] MEDS: Levemir Flexpen SUBQ SCH (08:57)
--- NOTE | 2017-09-11 09:59 | Nephrology Progress Note ---
Assessment/Plan Problem List: (1) Atrial fibrillation (2) Uncontrolled hypertension Assessment - Atrial fibrillation with rapid ventricular response. The patient is self converted to sinus shin. - Troponin elevation. Echocardiogram pending. Add lippitor and Aspirin and lower dose Beta sandra - Hypertension. now better controlled - Hypokalemia. Replaced.now WNL - DM , Proteinuria: Nephropathy Plan Plan: Per cardiology add hydralazine Monitor BP and Lytes Keep BS in check Subjective ROS Limited/Unobtainable: No Constitutional: Reports: malaise Objective Objective Last 24 Hour Vital Signs Date Time Temp Pulse Resp B/P (MAP) Pulse Ox O2 Delivery O2 Flow Rate FiO2 09/11/17 08:52 181/73 09/11/17 08:52 65 181/73 09/11/17 08:00 98.2 65 19 181/73 96 Room Air 09/11/17 04:00 97.2 60 18 148/76 100 Room Air 09/11/17 03:57 56 09/11/17 02:46 48 09/11/17 00:00 97.0 60 19 144/75 97 09/10/17 21:03 74 151/80 09/10/17 20:00 99.1 80 19 165/97 99 09/10/17 19:16 78 09/10/17 17:27 140/77 09/10/17 16:00 61 09/10/17 16:00 98.1 64 18 140/77 94 Room Air 64 09/10/17 12:00 97.9 57 18 143/78 94 Room Air 57 09/10/17 12:00 61 Intake and Output 09/10/17 09/11/17 19:00 07:00 Intake Total 830 ml Balance 830 ml Intake Oral 830 ml # Voids 5 2 Laboratory Tests 09/11/17 06:35: White Blood Count 8.2, Red Blood Count 4.34, Hemoglobin 12.9, Hematocrit 38.8, Mean Corpuscular Volume 89, Mean Corpuscular Hemoglobin 29.8, Mean Corpuscular Hemoglobin Concent 33.4, Red Cell Distribution Width 12.0, Platelet Count 214, Mean Platelet Volume 8.6, Neutrophils (%) (Auto) 67.2, Lymphocytes (%) (Auto) 21.8, Monocytes (%) (Auto) 6.5, Eosinophils (%) (Auto) 3.6H, Basophils (%) (Auto ) 0.9, Sodium Level 141, Potassium Level 3.7, Chloride Level 108H, Carbon Dioxide Level 26, Anion Gap 7, Blood Urea Nitrogen 15, Creatinine 0.7, Estimat Glomerular Filtration Rate , Glucose Level 193H, Uric Acid 4.2, Calcium Level 9.0, Phosphorus Level 3.6, Magnesium Level 1.7L, Total Bilirubin 0.6, Gamma Glutamyl Transpeptidase 13, Aspartate Amino Transf (AST/SGOT) 18, Alanine Aminotransferase (ALT/SGPT) 18, Alkaline Phosphatase 74, Total Creatine Kinase 123, Troponin I 0.120H, Pro-B-Type Natriuretic Peptide 203H, Total Protein 6.6, Albumin 2.9L, Globulin 3.7, Albumin/Globulin Ratio 0.8L, Triglycerides Level 121 , Cholesterol Level 149, LDL Cholesterol 77, HDL Cholesterol 56, Cholesterol/ HDL Ratio 2.7L, Vitamin B12 Level 633, Folate 14.1 Height (Feet): 5 Height (Inches): 1.00 Weight (Pounds): 180 General Appearance: no apparent distress Cardiovascular: arrhythmia Respiratory/Chest: decreased breath sounds Abdomen: soft NAHEED GUZMAN Sep 11, 2017 09:59
--- NOTE | 2017-09-11 10:23 | GI Progress Note ---
Assessment/Plan Problems: (1) Gastroparesis ICD Codes: K31.84 - Gastroparesis SNOMED: 315173779 (2) Episode of generalized weakness ICD Codes: R53.1 - Weakness SNOMED: 76039198 (3) Diabetes mellitus out of control ICD Codes: E11.65 - Type 2 diabetes mellitus with hyperglycemia SNOMED: 52636251, 537281030 (4) Abdominal pain ICD Codes: R10.9 - Unspecified abdominal pain SNOMED: 70426708 Status: unchanged Status Narrative Discussed with Dr. Lu. Assessment/Plan fu cardio recs symptomatic treatment adv to ADA diet zofran prn, reglan for persistent vomiting ppi PO DM mgmt healthy lifestyle fu labs, lactic acid bowel regime outpatient GI procedures Subjective Gastrointestinal/Abdominal: Reports: no symptoms Objective Last 24 Hour Vital Signs Date Time Temp Pulse Resp B/P (MAP) Pulse Ox O2 Delivery O2 Flow Rate FiO2 09/11/17 08:52 181/73 09/11/17 08:52 65 181/73 09/11/17 08:00 98.2 65 19 181/73 96 Room Air 09/11/17 07:40 53 09/11/17 04:00 97.2 60 18 148/76 100 Room Air 09/11/17 03:57 56 09/11/17 02:46 48 09/11/17 00:00 97.0 60 19 144/75 97 09/10/17 21:03 74 151/80 09/10/17 20:00 99.1 80 19 165/97 99 09/10/17 19:16 78 09/10/17 17:27 140/77 09/10/17 16:00 61 09/10/17 16:00 98.1 64 18 140/77 94 Room Air 64 09/10/17 12:00 97.9 57 18 143/78 94 Room Air 57 09/10/17 12:00 61 Intake and Output 09/10/17 09/11/17 19:00 07:00 Intake Total 830 ml Balance 830 ml Intake Oral 830 ml # Voids 5 2 Laboratory Tests Test 09/11/17 06:35 White Blood Count 8.2 K/UL (4.8-10.8) Red Blood Count 4.34 M/UL (4.20-5.40) Hemoglobin 12.9 G/DL (12.0-16.0) Hematocrit 38.8 % (37.0-47.0) Mean Corpuscular Volume 89 FL (80-99) Mean Corpuscular Hemoglobin 29.8 PG (27.0-31.0) Mean Corpuscular Hemoglobin Concent 33.4 G/DL (32.0-36.0) Red Cell Distribution Width 12.0 % (11.6-14.8) Platelet Count 214 K/UL (150-450) Mean Platelet Volume 8.6 FL (6.5-10.1) Neutrophils (%) (Auto) 67.2 % (45.0-75.0) Lymphocytes (%) (Auto) 21.8 % (20.0-45.0) Monocytes (%) (Auto) 6.5 % (1.0-10.0) Eosinophils (%) (Auto) 3.6 % (0.0-3.0) H Basophils (%) (Auto) 0.9 % (0.0-2.0) Sodium Level 141 MMOL/L (136-145) Potassium Level 3.7 MMOL/L (3.5-5.1) Chloride Level 108 MMOL/L (98-107) H Carbon Dioxide Level 26 MMOL/L (21-32) Anion Gap 7 mmol/L (5-15) Blood Urea Nitrogen 15 mg/dL (7-18) Creatinine 0.7 MG/DL (0.55-1.30) Estimat Glomerular Filtration Rate mL/min (>60) Glucose Level 193 MG/DL (74-106) H Uric Acid 4.2 MG/DL (2.6-7.2) Calcium Level 9.0 MG/DL (8.5-10.1) Phosphorus Level 3.6 MG/DL (2.5-4.9) Magnesium Level 1.7 MG/DL (1.8-2.4) L Total Bilirubin 0.6 MG/DL (0.2-1.0) Gamma Glutamyl Transpeptidase 13 U/L (5-85) Aspartate Amino Transf (AST/SGOT) 18 U/L (15-37) Alanine Aminotransferase (ALT/SGPT) 18 U/L (12-78) Alkaline Phosphatase 74 U/L (46-116) Total Creatine Kinase 123 U/L (26-308) Troponin I 0.120 ng/mL (0.000-0.056) Pro-B-Type Natriuretic Peptide 203 pg/mL (0-125) H Total Protein 6.6 G/DL (6.4-8.2) Albumin 2.9 G/DL (3.4-5.0) L Globulin 3.7 g/dL Albumin/Globulin Ratio 0.8 (1.0-2.7) L Triglycerides Level 121 MG/DL (30-150) Cholesterol Level 149 MG/DL (< 200) LDL Cholesterol 77 mg/dL (<100) HDL Cholesterol 56 MG/DL (40-60) Cholesterol/HDL Ratio 2.7 (3.3-4.4) L Vitamin B12 Level 633 PG/ML (193-986) Folate 14.1 NG/ML (8.6-58.9) Height (Feet): 5 Height (Inches): 1.00 Weight (Pounds): 180 General Appearance: WD/WN, no apparent distress, alert, obese Cardiovascular: normal rate Respiratory/Chest: normal breath sounds, no respiratory distress Abdominal Exam: normal bowel sounds, non tender, soft Extremities: normal range of motion, non-tender Millie Hogan N.P. Sep 11, 2017 10:22
[2017-09-11 12:00] VITALS: BP 169/69
[2017-09-11] MEDS: HydrALAZINE 25mg tab ORAL SCH ×2 (13:07→22:15)
--- NOTE | 2017-09-11 13:09 | Cardiac Electrophysiology PN ---
Assessment/Plan Assessment/Plan 1. Atrial fibrillation with rapid ventricular response. In SR. On Lopressor 12.5 bid May need PPM for tachy shin syndrome with HR between 41 and 150 over 24 hour HR now 64. Off anticoagulation for now as it was the only known episode 2. Troponin elevation. Levels flat and no chest pain and EF normal. Schedule for nuclear stress test in am. Echocardiogram Ef 55%.On lipitor, Aspirin and Lopressor 12.5 bid 3. Hypertension. Better on Lisinopril 20 bid and Lopressor 12.5 bid 4. Hypokalemia. Replaced. DW RN and family Subjective Subjective In SR.No chest pain or SOB.Scheduled for stress test today. Objective Last 24 Hour Vital Signs Date Time Temp Pulse Resp B/P (MAP) Pulse Ox O2 Delivery O2 Flow Rate FiO2 09/11/17 12:00 97.9 93 18 169/69 99 Room Air 09/11/17 08:52 181/73 09/11/17 08:52 65 181/73 09/11/17 08:00 98.2 65 19 181/73 96 Room Air 09/11/17 07:40 53 09/11/17 04:00 97.2 60 18 148/76 100 Room Air 09/11/17 03:57 56 09/11/17 02:46 48 09/11/17 00:00 97.0 60 19 144/75 97 09/10/17 21:03 74 151/80 09/10/17 20:00 99.1 80 19 165/97 99 09/10/17 19:16 78 09/10/17 17:27 140/77 09/10/17 16:00 61 09/10/17 16:00 98.1 64 18 140/77 94 Room Air 64 Intake and Output 09/10/17 09/11/17 19:00 07:00 Intake Total 830 ml Balance 830 ml Intake Oral 830 ml # Voids 5 2 Laboratory Tests Test 09/11/17 06:35 White Blood Count 8.2 K/UL (4.8-10.8) Red Blood Count 4.34 M/UL (4.20-5.40) Hemoglobin 12.9 G/DL (12.0-16.0) Hematocrit 38.8 % (37.0-47.0) Mean Corpuscular Volume 89 FL (80-99) Mean Corpuscular Hemoglobin 29.8 PG (27.0-31.0) Mean Corpuscular Hemoglobin Concent 33.4 G/DL (32.0-36.0) Red Cell Distribution Width 12.0 % (11.6-14.8) Platelet Count 214 K/UL (150-450) Mean Platelet Volume 8.6 FL (6.5-10.1) Neutrophils (%) (Auto) 67.2 % (45.0-75.0) Lymphocytes (%) (Auto) 21.8 % (20.0-45.0) Monocytes (%) (Auto) 6.5 % (1.0-10.0) Eosinophils (%) (Auto) 3.6 % (0.0-3.0) H Basophils (%) (Auto) 0.9 % (0.0-2.0) Sodium Level 141 MMOL/L (136-145) Potassium Level 3.7 MMOL/L (3.5-5.1) Chloride Level 108 MMOL/L (98-107) H Carbon Dioxide Level 26 MMOL/L (21-32) Anion Gap 7 mmol/L (5-15) Blood Urea Nitrogen 15 mg/dL (7-18) Creatinine 0.7 MG/DL (0.55-1.30) Estimat Glomerular Filtration Rate mL/min (>60) Glucose Level 193 MG/DL (74-106) H Uric Acid 4.2 MG/DL (2.6-7.2) Calcium Level 9.0 MG/DL (8.5-10.1) Phosphorus Level 3.6 MG/DL (2.5-4.9) Magnesium Level 1.7 MG/DL (1.8-2.4) L Total Bilirubin 0.6 MG/DL (0.2-1.0) Gamma Glutamyl Transpeptidase 13 U/L (5-85) Aspartate Amino Transf (AST/SGOT) 18 U/L (15-37) Alanine Aminotransferase (ALT/SGPT) 18 U/L (12-78) Alkaline Phosphatase 74 U/L (46-116) Total Creatine Kinase 123 U/L (26-308) Troponin I 0.120 ng/mL (0.000-0.056) Pro-B-Type Natriuretic Peptide 203 pg/mL (0-125) H Total Protein 6.6 G/DL (6.4-8.2) Albumin 2.9 G/DL (3.4-5.0) L Globulin 3.7 g/dL Albumin/Globulin Ratio 0.8 (1.0-2.7) L Triglycerides Level 121 MG/DL (30-150) Cholesterol Level 149 MG/DL (< 200) LDL Cholesterol 77 mg/dL (<100) HDL Cholesterol 56 MG/DL (40-60) Cholesterol/HDL Ratio 2.7 (3.3-4.4) L Vitamin B12 Level 633 PG/ML (193-986) Folate 14.1 NG/ML (8.6-58.9) Objective HEAD AND NECK: Showed no JVD. LUNGS: Clear. CARDIOVASCULAR: Shin S1 and S2 with no gallop or murmur. ABDOMEN: Soft. EXTREMITIES: No pitting edema. EUGENIO WOODARD Sep 11, 2017 13:09
[2017-09-11 16:00] VITALS: BP 136/78
[2017-09-11 20:00] VITALS: BP 156/91
--- NOTE | 2017-09-11 20:59 | General Progress Note ---
Assessment/Plan Problem List: (1) Abdominal pain ICD Codes: R10.9 - Unspecified abdominal pain SNOMED: 50212320 (2) Diabetes mellitus out of control ICD Codes: E11.65 - Type 2 diabetes mellitus with hyperglycemia SNOMED: 53779178, 521608932 (3) Episode of generalized weakness ICD Codes: R53.1 - Weakness SNOMED: 05909528 (4) Atrial fibrillation ICD Codes: I48.91 - Unspecified atrial fibrillation SNOMED: 57748112 Status: progressing Assessment/Plan a fib rate controlled afebrile decrease in abd pain abdominal pain reviewed chart and labs Subjective ROS Limited/Unobtainable: Yes Allergies: Coded Allergies: No Known Allergies (Unverified , 09/08/17) Objective Last 24 Hour Vital Signs Date Time Temp Pulse Resp B/P (MAP) Pulse Ox O2 Delivery O2 Flow Rate FiO2 09/11/17 16:00 67 09/11/17 16:00 97.1 73 18 136/78 100 Room Air 09/11/17 13:07 169/69 09/11/17 12:00 60 09/11/17 12:00 97.9 93 18 169/69 99 Room Air 09/11/17 08:52 181/73 09/11/17 08:52 65 181/73 09/11/17 08:00 98.2 65 19 181/73 96 Room Air 09/11/17 07:40 53 09/11/17 04:00 97.2 60 18 148/76 100 Room Air 09/11/17 03:57 56 09/11/17 02:46 48 09/11/17 00:00 97.0 60 19 144/75 97 09/10/17 21:03 74 151/80 Intake and Output 09/10/17 09/11/17 19:00 07:00 Intake Total 830 ml Balance 830 ml Intake Oral 830 ml # Voids 5 2 Laboratory Tests 09/11/17 06:35: White Blood Count 8.2, Red Blood Count 4.34, Hemoglobin 12.9, Hematocrit 38.8, Mean Corpuscular Volume 89, Mean Corpuscular Hemoglobin 29.8, Mean Corpuscular Hemoglobin Concent 33.4, Red Cell Distribution Width 12.0, Platelet Count 214, Mean Platelet Volume 8.6, Neutrophils (%) (Auto) 67.2, Lymphocytes (%) (Auto) 21.8, Monocytes (%) (Auto) 6.5, Eosinophils (%) (Auto) 3.6H, Basophils (%) (Auto ) 0.9, Sodium Level 141, Potassium Level 3.7, Chloride Level 108H, Carbon Dioxide Level 26, Anion Gap 7, Blood Urea Nitrogen 15, Creatinine 0.7, Estimat Glomerular Filtration Rate , Glucose Level 193H, Uric Acid 4.2, Calcium Level 9.0, Phosphorus Level 3.6, Magnesium Level 1.7L, Total Bilirubin 0.6, Gamma Glutamyl Transpeptidase 13, Aspartate Amino Transf (AST/SGOT) 18, Alanine Aminotransferase (ALT/SGPT) 18, Alkaline Phosphatase 74, Total Creatine Kinase 123, Troponin I 0.120H, Pro-B-Type Natriuretic Peptide 203H, Total Protein 6.6, Albumin 2.9L, Globulin 3.7, Albumin/Globulin Ratio 0.8L, Triglycerides Level 121 , Cholesterol Level 149, LDL Cholesterol 77, HDL Cholesterol 56, Cholesterol/ HDL Ratio 2.7L, Vitamin B12 Level 633, Folate 14.1 Height (Feet): 5 Height (Inches): 1.00 Weight (Pounds): 180 EENT: PERRL/EOMI Cardiovascular: normal rate Respiratory/Chest: lungs clear Abdomen: soft Cesilia Merritt MD Sep 11, 2017 20:59
[2017-09-11] MEDS: Miralax 17gm pkt ORAL SCH (21:00)
[2017-09-12 00:32] VITALS: BP 145/79
[2017-09-12 04:29] VITALS: BP 134/58
[2017-09-12] MEDS: HydrALAZINE 25mg tab ORAL SCH (06:42)
[2017-09-12] MEDS: NovoLOG Insulin Flexpen SUBQ SCH (06:44)
[2017-09-12 08:00] VITALS: BP 153/69
--- NOTE | 2017-09-12 08:05 | General Progress Note ---
Assessment/Plan Problem List: (1) Gastroparesis ICD Codes: K31.84 - Gastroparesis SNOMED: 836636156 (2) Diabetes mellitus out of control ICD Codes: E11.65 - Type 2 diabetes mellitus with hyperglycemia SNOMED: 29815186, 400327770 (3) Abdominal pain ICD Codes: R10.9 - Unspecified abdominal pain SNOMED: 76011294 (4) Atrial fibrillation ICD Codes: I48.91 - Unspecified atrial fibrillation SNOMED: 83177473 Assessment/Plan tolerating diet no abd pain ok to dc GI stand point fu as out patient for GI procedures Subjective ROS Limited/Unobtainable: Yes Allergies: Coded Allergies: No Known Allergies (Unverified , 09/08/17) Subjective no abd pain Objective Last 24 Hour Vital Signs Date Time Temp Pulse Resp B/P (MAP) Pulse Ox O2 Delivery O2 Flow Rate FiO2 09/12/17 06:42 134/58 09/12/17 04:29 98.7 62 20 134/58 95 Room Air 09/12/17 04:00 57 09/12/17 00:32 97.3 56 20 145/79 95 09/12/17 00:00 55 09/11/17 22:15 156/91 09/11/17 22:13 156/91 09/11/17 22:12 78 156/91 09/11/17 20:00 89 09/11/17 20:00 94 Room Air 09/11/17 20:00 98.7 78 22 156/91 94 09/11/17 16:00 67 09/11/17 16:00 97.1 73 18 136/78 100 Room Air 09/11/17 13:07 169/69 09/11/17 12:00 60 09/11/17 12:00 97.9 93 18 169/69 99 Room Air 09/11/17 08:52 181/73 09/11/17 08:52 65 181/73 Intake and Output 09/11/17 09/12/17 19:00 07:00 Intake Total 472 ml Balance 472 ml Intake Oral 472 ml # Voids 3 2 Laboratory Tests 09/12/17 06:15: White Blood Count [Pending], Red Blood Count [Pending], Hemoglobin [Pending], Hematocrit [Pending], Mean Corpuscular Volume [Pending], Mean Corpuscular Hemoglobin [Pending], Mean Corpuscular Hemoglobin Concent [Pending], Red Cell Distribution Width [Pending], Platelet Count [Pending], Mean Platelet Volume [ Pending], Neutrophils (%) (Auto) [Pending], Lymphocytes (%) (Auto) [Pending], Monocytes (%) (Auto) [Pending], Eosinophils (%) (Auto) [Pending], Basophils (%) (Auto) [Pending], Sodium Level [Pending], Potassium Level [Pending], Chloride Level [Pending], Carbon Dioxide Level [Pending], Blood Urea Nitrogen [Pending], Creatinine [Pending], Estimat Glomerular Filtration Rate [Pending], Glucose Level [Pending], Calcium Level [Pending] Height (Feet): 5 Height (Inches): 1.00 Weight (Pounds): 180 General Appearance: alert EENT: normal ENT inspection Neck: supple Cardiovascular: normal rate Respiratory/Chest: lungs clear Abdomen: normal bowel sounds, non tender, soft Extremities: non-tender CHARITO LOVE Sep 12, 2017 08:05
[2017-09-12 08:07] LABS: HEMATOCRIT 37.6 % (37.0-47.0); HEMOGLOBIN 12.6 G/DL (12.0-16.0); LYMPHOCYTES % (AUTO) 25.2 % (20.0-45.0); MEAN CORPUSCULAR VOLUME 90 FL (80-99); MONOCYTES % (AUTO) 6.7 % (1.0-10.0); NEUTROPHILS % (AUTO) 63.1 % (45.0-75.0); PLATELET COUNT 213 K/UL (150-450); RED BLOOD COUNT 4.18 M/UL (4.20-5.40); RED CELL DISTRIBUTION WIDTH 12.6 % (11.6-14.8); WHITE BLOOD COUNT 8.3 K/UL (4.8-10.8)
[2017-09-12 08:40] LABS: ANION GAP 9 mmol/L (5-15); BLOOD UREA NITROGEN 12 mg/dL (7-18); CALCIUM 8.9 MG/DL (8.5-10.1); CARBON DIOXIDE 25 MMOL/L (21-32); CHLORIDE 106 MMOL/L (98-107); CREATININE 0.7 MG/DL (0.55-1.30); POTASSIUM 3.5 MMOL/L (3.5-5.1); SODIUM 140 MMOL/L (136-145)
[2017-09-12] MEDS: Aspirin EC 81mg tab ORAL SCH (10:31)
[2017-09-12 10:32] VITALS: BP 153/69
[2017-09-12] MEDS: Metoprolol 25mg tab ORAL SCH (10:32)
[2017-09-12] MEDS: Lisinopril 20mg tab ORAL SCH (10:32)
[2017-09-12] MEDS: Levemir Flexpen SUBQ SCH (10:34)
--- NOTE | 2017-09-12 10:39 | Diagnostic Imaging Report ---
Indication: Reason For Exam: CP Technique: Stress and resting myocardial scans were performed. Lexiscan was utilized to simulate stress. ECG was continuously monitored while Lexiscan was injected. Stress utilized 30.1 mCi of technetium Myoview. Resting study utilized and additional 10.4 mCi of technetium Myoview. Imaging was obtained in 3 planes. Wall motion analysis and ejection fraction was also performed. Ejection fraction is calculated at 69%. Wall motion is unremarkable. SPECT images of the heart in 3 planes for both studies are unremarkable. Comparison: None. Findings: Clinical response to stress was reported as nonischemic. Electrocardiographic response to stress was reported as ischemic. That report is included with this exam. Ejection fraction is calculated at 69%. Wall motion is normal. SPECT images in 3 planes for both studies are unremarkable. Impression: Normal ejection fraction of 69%. Normal wall motion. No evidence of myocardial ischemia. Electrocardiographic report included with this exam.
--- NOTE | 2017-09-12 12:00 | Nephrology Progress Note ---
Assessment/Plan Problem List: (1) Atrial fibrillation (2) Uncontrolled hypertension Assessment - Atrial fibrillation with rapid ventricular response. The patient is self converted to sinus shin. - Troponin elevation. Echocardiogram pending. Add lippitor and Aspirin and lower dose Beta sandra - Hypertension. now better controlled - Hypokalemia. Replaced.now WNL - DM , Proteinuria: Nephropathy Plan Plan: Per cardiology add hydralazine and adjust dose Monitor BP and Lytes Keep BS in check Subjective ROS Limited/Unobtainable: No Constitutional: Reports: malaise Objective Objective Last 24 Hour Vital Signs Date Time Temp Pulse Resp B/P (MAP) Pulse Ox O2 Delivery O2 Flow Rate FiO2 09/12/17 10:32 153/69 09/12/17 10:32 68 153/69 09/12/17 08:00 65 09/12/17 08:00 97.8 68 20 153/69 94 Room Air 09/12/17 06:42 134/58 09/12/17 04:29 98.7 62 20 134/58 95 Room Air 09/12/17 04:00 57 09/12/17 00:32 97.3 56 20 145/79 95 09/12/17 00:00 55 09/11/17 22:15 156/91 09/11/17 22:13 156/91 09/11/17 22:12 78 156/91 09/11/17 20:00 89 09/11/17 20:00 94 Room Air 09/11/17 20:00 98.7 78 22 156/91 94 09/11/17 16:00 67 09/11/17 16:00 97.1 73 18 136/78 100 Room Air 09/11/17 13:07 169/69 09/11/17 12:00 60 09/11/17 12:00 97.9 93 18 169/69 99 Room Air Intake and Output 09/11/17 09/12/17 19:00 07:00 Intake Total 472 ml Balance 472 ml Intake Oral 472 ml # Voids 3 2 Laboratory Tests 09/12/17 06:15: White Blood Count 8.3, Red Blood Count 4.18L, Hemoglobin 12.6, Hematocrit 37.6, Mean Corpuscular Volume 90, Mean Corpuscular Hemoglobin 30.1, Mean Corpuscular Hemoglobin Concent 33.5, Red Cell Distribution Width 12.6, Platelet Count 213, Mean Platelet Volume 8.4, Neutrophils (%) (Auto) 63.1, Lymphocytes (%) (Auto) 25.2, Monocytes (%) (Auto) 6.7, Eosinophils (%) (Auto) 4.0H, Basophils (%) (Auto ) 1.0, Sodium Level 140, Potassium Level 3.5, Chloride Level 106, Carbon Dioxide Level 25, Anion Gap 9, Blood Urea Nitrogen 12, Creatinine 0.7, Estimat Glomerular Filtration Rate , Glucose Level 168H, Calcium Level 8.9 Height (Feet): 5 Height (Inches): 1.00 Weight (Pounds): 180 General Appearance: no apparent distress Objective no change NAHEED GUZMAN Sep 12, 2017 11:59
[2017-09-12] MEDS ORDERED: HydrALAZINE 25mg tab ORAL SCH (14:00)
--- NOTE | 2017-09-14 12:09 | Discharge Summary ---
Discharge Summary Hospital Course Date of Admission Sep 08, 2017 at 13:50 Date of Discharge Sep 12, 2017 at 11:45 Admitting Diagnosis generalized weakness, AFIB HPI Jennifer Sanchez is a 77 year old female who was admitted on Sep 08, 2017 at 13:50 for Generalized Weakness, Atrial Fibrillation Hospital Course dc summary #[id number] Discharge Medications Continued Medications: Metformin Hcl* (Metformin Hcl*) 500 Mg Tablet Unknown Dose ORAL, TAB Metoprolol Tartrate* (Metoprolol Tartrate*) 25 Mg Tablet Unknown Dose ORAL, TAB Discharge Condition Upon Discharge: stable Discharge Disposition Patient was discharged to Home with Home Health(06) Discharge Diagnoses: Discharge Instructions Discharge Instructions Special Instructions I have been assigned to complete a D/C Summary on this account. I was not involved in the patient management Lashay Renee NP ([place]) Sep 14, 2017 12:08
--- NOTE | 2017-09-14 20:45 | Discharge Summary 2 SIG ---
DATE OF ADMISSION: 09/08/2017 DATE OF DISCHARGE: 09/12/2017 REASON FOR ADMISSION: 77-year-old female with a history of hypertension and diabetes, presented to the emergency room with episodes of generalized weakness, nausea, vomiting, and dizziness for one day. The patient vomited x2 with nonbloody, nonbilious emesis. The patient denied chest pain or shortness of breath. Upon presentation, the patient was tachycardic. EKG revealed atrial fibrillation with rapid ventricular response in 140s, it was paroxysmal, and rate spontaneously decreased down to 100. Subsequently the patient spontaneously converted to normal sinus rhythm. Laboratory workup at that time revealed tachycardia, but not hypoxia, airway was patent. Lactic acid -2.6. Potassium -3.1, stable renal parameters. Blood sugar- 350. Initial troponin was negative. No leukocytosis. Stable hemoglobin and hematocrit. CT of the abdomen and pelvis revealed no acute intraabdominal pathology. The patient was admitted with diagnosis of atrial fibrillation with rapid ventricular response, abdominal pain, hypertension, and hypokalemia. HOSPITAL COURSE: The patient admitted to telemetry floor. Cardiology, Nephrology, and GI consults were requested. Per coal gasification technician, the patient had subsequent serial troponin done. The patient was found to have mild elevation in troponin with troponin of 0.336, then started to trend down, the last one -0.12. According to coal gasification technician, troponin elevation with flat levels and no chest pain. Echocardiogram revealed preserved ejection fraction of 55% to 60% and right ventricular systolic pressure of 36, consistent with moderate pulmonary hypertension. The patient was in sinus rhythm on telemetry, was only one episode of atrial fibrillation with rapid ventricular response in ED. The patient was not placed on anticoagulation for the time being as per cardio, since it was the only one known episode. The patient was on beta-sandra for rate control and appeared to be in a sinus rhythm. 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 Heart rate later stabilized. Sports Medicine Specialist recommended outpatient follow up with the coal gasification technician. 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 Nuclear stress test was nonischemic. The patient was managed medically with statin, aspirin, and beta sandra/ Lopressor. Blood pressure was stable. Lisinopril was added for better blood pressure control. Elevated troponin were possibly due to tachy-shin syndrome as per coal gasification technician. Hypokalemia was corrected. [employer] closely followed the patient. Per president consumer [employer] company, the patient had diabetic nephropathy along with proteinuria. Blood pressure medication were adjusted. Renal parameters and electrolytes were closely monitored and replaced as needed. GI closely followed the patient. Per GI, the patient had gastroparesis. Antiemetic provided as needed. The patient was able to tolerate diet. Abdominal pain resolved. The patient was started on PPI, and bowel regimen instituted. The patient recommended to have outpatient GI procedure. Blood sugar was closely monitored and managed with sliding scale of insulin. The patient need tighter blood sugar control as outpatient. Hemoglobin A1c not at goal, -9.8. The patient was stable for discharge home with home health services. FINAL DIAGNOSES: 1. Atrial fibrillation with rapid ventricular response, resolved. 2. Hypertension. 3. Diabetes mellitus, out of control. 4. Diabetic nephropathy. 5. Hypokalemia, resolved. 6. Elevated troponin. 7. Abdominal pain, possibly due to the gastroparesis. DISCHARGE INSTRUCTIONS: Follow up with primary care provider for tighter blood sugar control. Follow up with the coal gasification technician to monitor heart rate and for further evaluation for possible permanent pacemaker. DISCHARGE MEDICATIONS: Refer to medication reconciliation list Cesilia Merrtit M.D. I have been assigned to dictate discharge summary on this account and I was not involved in the patient's management. Lashay Adammarifer N.PJoe DR: TED JOB#: [id number] CC: ED
--- NOTE | 2017-09-20 20:31 | Diagnostic Imaging Report ---
APPROVED REPORT CPT Code: 63249 Present Symptoms Lower Extremity Pain: Comments: R/O DVT. BILATERAL LOWER EXTREMITY VENOUS DUPLEX: Imaging reveals a patent deep venous system bilaterally. There is no evidence of thrombus within the femoral, popliteal or tibial segments. The greater saphenous veins are also within normal limits. Doppler indicates normal spontaneous flow within these segments.
== END 2017-09-12 11:45 | disposition home health service (06) | DRG 309 ==
LOC: EDBD 09:26 → EMR 10:07 → 2E 13:50 → EDBEDREQ 15:45 → 2E 09-09 07:13
DX: I48.0 Paroxysmal atrial fibrillation (principal); E87.2 Acidosis; E11.65 Type 2 diabetes mellitus with hyperglycemia; E11.21 Type 2 diabetes mellitus with diabetic nephropathy; K31.84 Gastroparesis; E87.6 Hypokalemia; I10 Essential (primary) hypertension; R53.1 Weakness; R10.9 Unspecified abdominal pain; Z85.3 Personal history of malignant neoplasm of breast; E78.5 Hyperlipidemia, unspecified
CPT/HCPCS: 36415; 71045; 74177; 78452; 80048; 80053; 80061; 81003; 82550; 82607; 82746; 82962; 82977; 83036; 83605; 83735; 83880; 84100; 84439; 84443; 84484; 84550; 85025; 86140; 87040; 93005; 93017; 93306; 93970; J1815; J2785; J8499; S5561